=== PATIENT | male | born 1935 | race African-American/Black ===

== ENCOUNTER 2019-01-19 18:40 | Inpatient (IN) | payer MEDICARE ==
--- NOTE | 2019-01-19 19:24 | ED Physician Chart ---
ED Chief Complaint/HPI - Patient Information Date Seen:: 01/19/19 Time Seen:: 19:24 Chief Complaint:: Generalized weakness History of Present Illness:: 83 yo male was brought from home to ER for evaluation of generalized weakness, poor oral intake, failure to thrive and frequent falls. Pt lived at home and his "is in hospital" per pt. Pt was oriented to self only. Allergies:: Allergies Allergy/AdvReac Type Severity Reaction Status Date / Time Penicillins [PCN] Allergy Verified 01/19/19 19:20 Vitals:: Vital Signs - 8 hr 01/19/19 19:13 Temp 98.1 F HR 72 RR 16 BP 139/88 O2 Sat % 99 ED Review of Systems - Review of Systems General/Constitutional: No fever Skin: No rash Head: No headache Eyes: No pain ENT: No nasal drainage Neck: No neck pain Cardio Vascular: No chest pain Pulmonary: No SOB GI: No nausea, No vomiting Musculoskeletal: No back pain Neurological: Weakness, Confusion ED Past Medical History - Past Medical History Past Medical History: HTN, Thyroid disorder (hypothyroidism), Cataract, Other ( glaucoma) Social History: Non Smoker, No Alcohol, No Drug Use Surgical History: other (right eye cataract surgery) Family Medical History - Family Member Mother History Unknown: Yes ED Physical Exam - Physical Examination General/Constitutional: Awake, Alert Head: Atraumatic Eyes: PERRL, EOMI Skin: No skin lesions Other ENMT comments:: No tooth Neck: No nuchal rigidity Respiratory: No Wheeze/Rhonchi/Rales Cardio Vascular: RRR, No murmur, gallop, rubs, NL S1 S2 GI: No tenderness/rebounding/guarding Extremities: normal strength in all extremities Other Neuro/Psych comments:: Oriented to self ED Labs/Radiology/EKG Results - Lab Results Results: Laboratory Last Values WBC 4.8 Th/cmm (4.8-10.8) 01/20/19 04:30 RBC 3.69 Mil/cmm (3.80-5.80) L 01/20/19 04:30 Hgb 12.9 gm/dL (12-16) 01/20/19 04:30 Hct 39.5 % (41.0-60) L 01/20/19 04:30 MCV 107.3 fl (80-99) H 01/20/19 04:30 MCH 35.0 pg (27.0-31.0) H 01/20/19 04:30 MCHC Differential 32.7 pg (28.0-36.0) 01/20/19 04:30 RDW 13.3 % (11.5-20.0) 01/20/19 04:30 Plt Count 199 Th/cmm (150-400) 01/20/19 04:30 MPV 6.8 fl 01/20/19 04:30 Neutrophils % 52.0 % (40.0-80.0) 01/20/19 04:30 Lymphocytes % 33.0 % (20.0-50.0) 01/20/19 04:30 Monocytes % 10.4 % (2.0-10.0) H 01/20/19 04:30 Eosinophils % 4.0 % (0.0-5.0) 01/20/19 04:30 Basophils % 0.6 % (0.0-2.0) 01/20/19 04:30 PT 10.8 SECONDS (9.5-11.5) 01/19/19 19:30 INR 1.04 (0.5-1.4) 01/19/19 19:30 PTT (Actin FS) 24.5 SECONDS (26.0-38.0) L 01/19/19 19:30 Sodium 142 mEq/L (136-145) 01/20/19 04:30 Potassium 4.2 mEq/L (3.5-5.1) 01/20/19 04:30 Chloride 105 mEq/L (98-107) 01/20/19 04:30 Carbon Dioxide 27.8 mEq/L (21.0-31.0) 01/20/19 04:30 Anion Gap 13.4 (7.0-16.0) 01/20/19 04:30 BUN 23 mg/dL (7-25) 01/20/19 04:30 Creatinine 1.4 mg/dL (0.7-1.3) H 01/20/19 04:30 Est GFR ( Amer) TNP 01/20/19 04:30 Est GFR (Non-Af Amer) TNP 01/20/19 04:30 BUN/Creatinine Ratio 16.4 01/20/19 04:30 Glucose 78 mg/dL (70-105) 01/20/19 04:30 Whole Bld Lactic Acid 0.74 mmol/L (0.60-1.99) 01/19/19 19:30 Calcium 9.3 mg/dL (8.6-10.3) 01/20/19 04:30 Total Bilirubin 0.4 mg/dL (0.3-1.0) 01/20/19 04:30 AST 18 U/L (13-39) 01/20/19 04:30 ALT 13 U/L (7-52) 01/20/19 04:30 Alkaline Phosphatase 53 U/L (34-104) 01/20/19 04:30 Troponin I 0.01 ng/mL (0.01-0.05) 01/19/19 19:30 B-Natriuretic Peptide 24.5 pg/mL (5.0-100.0) 01/19/19 19:30 Total Protein 6.9 gm/dL (6.0-8.3) 01/20/19 04:30 Albumin 4.1 gm/dL (4.2-5.5) L 01/20/19 04:30 Globulin 2.8 gm/dL 01/20/19 04:30 Albumin/Globulin Ratio 1.5 (1.0-1.8) 01/20/19 04:30 TSH 2.24 uIU/ml (0.34-5.60) 01/19/19 19:30 Urine Source MIDSTREAM 01/19/19 20:27 Urine Color YELLOW 01/19/19 20:27 Urine Clarity CLEAR (CLEAR) 01/19/19 20: Urine pH 6.5 (4.6 - 8.0) 01/19/19 20:27 Ur Specific [place] 1.010 (1.005-1.030) 01/19/19 20:27 Urine Protein NEGATIVE mg/dL (NEGATIVE) 01/19/19 20: Urine Glucose (UA) NEGATIVE mg/dL (NEGATIVE) 01/19/19 20: Urine Ketones NEGATIVE mg/dL (NEGATIVE) 01/19/19 20: Urine Blood NEGATIVE (NEGATIVE) 01/19/19 20: Urine Nitrate NEGATIVE (NEGATIVE) 01/19/19 20: Urine Bilirubin NEGATIVE (NEGATIVE) 01/19/19 20: Urine Urobilinogen 0.2 E.U./dL (0.2 - 1.0) 01/19/19 20:27 Ur Leukocyte Esterase NEGATIVE (NEGATIVE) 01/19/19 20:27 - Radiology Results Results: CXR: no focal consolidation - EKG Interpretations EKG Time:: 20:03 Rate & Rhythm: 63 bpm, SR Melber: left axis deviation Intervals: PA 155 Comments:: Non-specific ST, T wave changes ED Assessment - Assessment General Assessment: Leukopenia Dehydration Failure to thrive Assessment/Comments:: CBC, CMP, Trop, BNP, UA CXR, EKG NS 1L IV bolus ED Septic Shock - . Is Septic Shock (SBP<90, OR Lactate>4 mmol\\L) present?: No - <6hrs of presentation: Vital Signs: Vital Signs - 8 hr 01/19/19 19:13 Temp 98.1 F HR 72 RR 16 BP 139/88 O2 Sat % 99 ED Reassessment (Disposition) - Reassessment Reassessment:: Pt is unsafe to live alone without proper support. Reassessment Condition:: Improved - Patient Disposition Discharge/Transfer:: Acute Care w/in this hosp Admitting Medical Physician:: Feliciano Belle
[2019-01-19 19:40] LABS: EOSINOPHILE ABSOLUTE 0.2 Th/cmm (0.1-0.4); HEMATOCRIT 39.3 % (41.0-60); MONOCYTE ABSOLUTE 0.4 Th/cmm (0.3-1.0)
[2019-01-19 19:49] LABS: % BASOPHILS 0.5 % (0.0-2.0); % EOSINOPHILS 4.4 % (0.0-5.0); % LYMPHOCYTES 38.5 % (20.0-50.0); % MONOCYTES 10.8 % (2.0-10.0); % NEUTROPHILS 45.8 % (40.0-80.0); HEMOGLOBIN 12.9 gm/dL (12-16); LYMPHOCYTE ABSOLUTE 1.5 Th/cmm (1.5-3.0); MEAN CORPUSCULAR HEMOGLOBIN 35.3 pg (27.0-31.0); MEAN CORPUSCULAR HGB CONC 32.7 pg (28.0-36.0); MEAN PLATELET VOLUME 6.6 fl; NEUTROPHILE ABSOLUTE 1.7 Th/cmm (1.8-8.0); PLATELET COUNT 219 Th/cmm (150-400); RED BLOOD COUNT 3.65 Mil/cmm (3.80-5.80); RED CELL DISTRIBUTION WIDTH 13.4 % (11.5-20.0)
[2019-01-19 19:53] LABS: ALB/GLOB RATIO 1.5 (1.0-1.8); ALBUMIN 4.3 gm/dL (4.2-5.5); ALKALINE PHOSPHATASE 58 U/L (34-104); ANION GAP 11.7 (7.0-16.0); BILIRUBIN,TOTAL 0.5 mg/dL (0.3-1.0); BUN - UREA NITROGEN 27 mg/dL (7-25); CALCIUM SERUM 9.4 mg/dL (8.6-10.3); CHLORIDE 101 mEq/L (98-107); CREATININE - SERUM 1.6 mg/dL (0.7-1.3); GLUCOSE 95 mg/dL (70-105); POTASSIUM SERUM 4.7 mEq/L (3.5-5.1); SGOT 17 U/L (13-39); SGPT/ALT 14 U/L (7-52); SODIUM SERUM 136 mEq/L (136-145); TOTAL PROTEIN,SERUM 7.2 gm/dL (6.0-8.3); WHITE BLOOD COUNT 3.8 Th/cmm (4.8-10.8)
[2019-01-19 19:57] LABS: INR 1.04 (0.5-1.4); PROTHROMBIN TIME (TEST) 10.8 SECONDS (9.5-11.5)
[2019-01-19] MEDS ORDERED: Sodium Chloride 0.9% 1,000 ML IV ONE (20:21)
[2019-01-19 20:44] LABS: MEAN CELL VOLUME 107.7 fl (80-99)
[2019-01-19 21:29] LABS: URINE SOURCE MIDSTREAM
[2019-01-19 21:31] LABS: URINE BILIRUBIN NEGATIVE (NEGATIVE); URINE BLOOD NEGATIVE (NEGATIVE); URINE GLUCOSE (UA) NEGATIVE (NEGATIVE); URINE KETONE NEGATIVE (NEGATIVE); URINE LEUKOCYTE ESTERASE NEGATIVE (NEGATIVE); URINE NITRATE NEGATIVE (NEGATIVE); URINE PH 6.5 (4.6 - 8.0); URINE PROTEIN NEGATIVE (NEGATIVE); URINE UROBILINOGEN 0.2 E.U./dL (0.2 - 1.0)
[2019-01-19 21:33] LABS: URINE COLOR YELLOW
[2019-01-19 21:34] LABS: URINE CLARITY CLEAR (CLEAR); URINE MICROSCOPIC INDICATED? NO
[2019-01-19 23:52] VITALS: BP 143/87
[2019-01-20] MEDS: Sodium Chloride 0.45% 1,000 ML IV SCH ×2 (00:22→17:59)
[2019-01-20] MEDS: cefTRIAXone 1 GM in Sodium Chloride 0.9% 50 ML IV SCH (00:22)
[2019-01-20 05:28] LABS: % BASOPHILS 0.6 % (0.0-2.0); % MONOCYTES 10.4 % (2.0-10.0); EOSINOPHILE ABSOLUTE 0.2 Th/cmm (0.1-0.4); HEMATOCRIT 39.5 % (41.0-60); HEMOGLOBIN 12.9 gm/dL (12-16); LYMPHOCYTE ABSOLUTE 1.6 Th/cmm (1.5-3.0); MEAN CORPUSCULAR HGB CONC 32.7 pg (28.0-36.0); MEAN PLATELET VOLUME 6.8 fl; MONOCYTE ABSOLUTE 0.5 Th/cmm (0.3-1.0); NEUTROPHILE ABSOLUTE 2.5 Th/cmm (1.8-8.0); PLATELET COUNT 199 Th/cmm (150-400); RED BLOOD COUNT 3.69 Mil/cmm (3.80-5.80); RED CELL DISTRIBUTION WIDTH 13.3 % (11.5-20.0); WHITE BLOOD COUNT 4.8 Th/cmm (4.8-10.8)
[2019-01-20 05:35] LABS: MEAN CELL VOLUME 107.3 fl (80-99)
[2019-01-20 05:38] LABS: ALB/GLOB RATIO 1.5 (1.0-1.8); ALBUMIN 4.1 gm/dL (4.2-5.5); ALKALINE PHOSPHATASE 53 U/L (34-104); ANION GAP 13.4 (7.0-16.0); BILIRUBIN,TOTAL 0.4 mg/dL (0.3-1.0); BUN - UREA NITROGEN 23 mg/dL (7-25); CALCIUM SERUM 9.3 mg/dL (8.6-10.3); CARBON DIOXIDE 27.8 mEq/L (21.0-31.0); CHLORIDE 105 mEq/L (98-107); CREATININE - SERUM 1.4 mg/dL (0.7-1.3); GLUCOSE 78 mg/dL (70-105); POTASSIUM SERUM 4.2 mEq/L (3.5-5.1); SGOT 18 U/L (13-39); SGPT/ALT 13 U/L (7-52); SODIUM SERUM 142 mEq/L (136-145); TOTAL PROTEIN,SERUM 6.9 gm/dL (6.0-8.3)
--- NOTE | 2019-01-20 09:45 | Diagnostic Imaging Report ---
Chest x-ray single view History: Shortness of breath The heart size is normal. No focal pulmonary parenchymal processes. No hilar or mediastinal abnormalities. Impression: No acute abnormalities
--- NOTE | 2019-01-20 16:08 | History and Physical ---
History of Present Illness - HPI Chief Complaint: Patient was admitted to [facility] due to Generalized Weakness, Poor oral intake, Failure to thrive and Frequent Falls. HPI: Edgar Belle MD History and Physical Exam Dwight You : 1935 Admit date: 01/19/2019. Date: 01/20/2019. Chief complaint Patient was admitted to [facility] due to Generalized Weakness, Poor oral intake, Failure to thrive and Frequent Falls. Present illness 83 y/o male patient was recently admitted to [facility] due to Generalized Weakness. Patient has history of Hypertension, Hypothyroidism, Cataract and Glaucoma. Patient was diagnosed with Generalized Weakness, Poor Oral Intake, Failure to Thrive, Frequent Falls, Confusion, Leukopenia and Dehydration. Patient was seen by Dr. Barnett and a complete workup was done. Patient was treated and monitored. Patient was stabilized and I will continue to treat and follow patient closely. Review of systems Vitals: Reviewed. General: Normotensive, in no acute distress. Head: Normocephalic, no lesions. Eyes: PERRLA, EOM'S full, conjunctive clear, fundi grossly normal. Neck: Supple, no masses, no thyromegaly, no bruits. Lungs: Bilateral breath sounds, No Rhonchi or wheezing noted. Heart: RR, no murmurs, no rubs, no gallops. Abdomen: Soft, no tenderness, no masses, BS normal. Musculoskeletal: General Weakness. Psych: Patient is Mildly Confused. Skin: No rash or skin lesions noted. Neurological: Denies headache and loss of consciousness. Past medical history Hypertension, Hypothyroidism, Cataract and Glaucoma. Past surgical history Right eye cataract surgery. Medications Please refer to medication reconciliation sheet. Allergies Allergic to Penicillin. Family history Noncontributory. Social history Nonsmoker, No Alcohol use, No drug abuse. Physical Exam- HEENT: Head is normocephalic, atraumatic. NECK: Supple. No JVD. No carotid bruit. CHEST: Bilateral breath sounds. No crackles. No wheezing. HEART: S1, S2 within normal limits. Regular rhythm. No murmur. No gallop. ABDOMEN: soft, non-tender, non-distended. Bowel sounds present. EXTREMITIES: General Weakness. NEUROLOGIC: Altered Mental Status. Assessment and Impression Generalized Weakness. Poor Oral Intake. Failure to Thrive. Frequent Falls. Confusion. Leukopenia. Dehydration. Plan Continuation of care. Monitor Labs. Continue present meds as directed. Monitor vitals, continue B/P meds. Monitor Diet/Nutritional support. Monitor mental status progression. Monitor behavioral health status. Physical therapy. Occupational therapy. Fall precaution, frequent nursing rounds, and as needed restraints to prevent fall. Safety precaution. Supportive care. Continue collaborating with consulting specialists, case management and nursing team. Will Monitor patient and continue current treatment plan as ordered. Vital Signs: Last Vital Signs Temp 97.9 F 01/20/19 15:32 Pulse 65 01/20/19 15:32 Resp 18 01/20/19 15:32 BP 124/75 01/20/19 15:32 Pulse Ox 93 01/20/19 15:32 Past Medical History Cardiovascular: Report: No Pertinent Hx Pulmonary: Report: No Pertinent Hx PEARL PELLER: Report: No Pertinent Hx GI: Report: No Pertinent Hx Psych: Report: No Pertinent Hx Musculoskeletal: Report: Other (Generalized weakness.) Rheumatologic: Report: No pertinent Hx Infectious Disease: Report: No Pertinent Hx Renal/: Report: No Pertinent Hx Endocrine: Report: Hypothyroidism Dermatology: Report: No Pertinent Hx - Past Surgical History Past Surgical History: Cataract Removal Family Medical History - Family Member Mother History Unknown: Yes Social History Smoke: No Alcohol: None Drugs: None Lives: Alone Domestic Violence: Negative Health Maintenance Health Maintenance: Other (Noncontributory) - Medications Home Medications: Home Medication Medication Instructions Recorded Type Acetaminophen 2 tab PO Q4HR PRN 01/19/19 History Acetaminophen 2 tab PO Q4HR PRN 01/19/19 History Hydrocodone/Acetaminophen [[place] 1 tab PO Q6HR PRN 01/19/19 History 10-325 Tablet] Levothyroxine [Synthroid] 1 tab PO DAILY 01/19/19 History Timolol 0.5% Ophth Soln [Timoptic 1 drop EACH EYE BID 01/19/19 History 0.5% Ophth Soln] - Allergies Allergies/Adverse Reactions: Allergies Allergy/AdvReac Type Severity Reaction Status Date / Time Penicillins [PCN] Allergy Verified 01/19/19 19:20 Review of Systems - Review of Systems Constitutional: Report: Weakness Eyes: Report: Other (Cataract) ENT: Report: No Significant Respiratory: Report: No Significant Cardiovascular: Report: No Significant Gastrointestinal: Report: No Significant Genitourinary: Report: No Significant Musculoskeletal: Report: No Significant Skin: Report: No Significant Neurological: Report: Weakness, Confusion, Other (Failure to thrive) Physical Exam - Physical Exam HEENT: Report: Ears Nose Throat within normal limits Neck: Report: Within normal limits Cardiovascular Systems: Report: +s1/s2 noted Respiratory: Report: Breath Sounds are within normal limits Abdomen: Report: Non-tender to palpation Back: Report: Inspection of back is within normal limits. Extremities: Report: Non-tender to palpation. Skin: Report: Color of skin is within normal limits Neuro/Psych: Report: Weakness or sensory loss noted., Other (Confusion.) - Lab Results All Lab Results last 24 hours: Laboratory Results - last 24 hr 01/19/19 01/19/19 01/19/19 19:30 19:30 19:30 WBC 3.8 L RBC 3.65 L Hgb 12.9 Hct 39.3 L MCV 107.7 H MCH 35.3 H MCHC Differential 32.7 RDW 13.4 Plt Count 219 MPV 6.6 Neutrophils % 45.8 Lymphocytes % 38.5 Monocytes % 10.8 H Eosinophils % 4.4 Basophils % 0.5 PT 10.8 INR 1.04 PTT (Actin FS) 24.5 L Sodium 136 Potassium 4.7 Chloride 101 Carbon Dioxide 28.0 Anion Gap 11.7 BUN 27 H Creatinine 1.6 H Est GFR ( Amer) TNP Est GFR (Non-Af Amer) TNP BUN/Creatinine Ratio 16.9 Glucose 95 Whole Bld Lactic Acid Calcium 9.4 Total Bilirubin 0.5 AST 17 ALT 14 Alkaline Phosphatase 58 Troponin I B-Natriuretic Peptide Total Protein 7.2 Albumin 4.3 Globulin 2.9 Albumin/Globulin Ratio 1.5 TSH Urine Source Urine Color Urine Clarity Urine pH Ur Specific [place] Urine Protein Urine Glucose (UA) Urine Ketones Urine Blood Urine Nitrate Urine Bilirubin Urine Urobilinogen Ur Leukocyte Esterase 01/19/19 01/19/19 01/19/19 19:30 19:30 19:30 WBC RBC Hgb Hct MCV MCH MCHC Differential RDW Plt Count MPV Neutrophils % Lymphocytes % Monocytes % Eosinophils % Basophils % PT INR PTT (Actin FS) Sodium Potassium Chloride Carbon Dioxide Anion Gap BUN Creatinine Est GFR ( Amer) Est GFR (Non-Af Amer) BUN/Creatinine Ratio Glucose Whole Bld Lactic Acid Calcium Total Bilirubin AST ALT Alkaline Phosphatase Troponin I 0.01 B-Natriuretic Peptide 24.5 Total Protein Albumin Globulin Albumin/Globulin Ratio TSH 2.24 Urine Source Urine Color Urine Clarity Urine pH Ur Specific [place] Urine Protein Urine Glucose (UA) Urine Ketones Urine Blood Urine Nitrate Urine Bilirubin Urine Urobilinogen Ur Leukocyte Esterase 01/19/19 01/19/19 01/20/19 19:30 20:27 04:30 WBC RBC Hgb Hct MCV MCH MCHC Differential RDW Plt Count MPV Neutrophils % Lymphocytes % Monocytes % Eosinophils % Basophils % PT INR PTT (Actin FS) Sodium 142 Potassium 4.2 Chloride 105 Carbon Dioxide 27.8 Anion Gap 13.4 BUN 23 Creatinine 1.4 H Est GFR ( Amer) TNP Est GFR (Non-Af Amer) TNP BUN/Creatinine Ratio 16.4 Glucose 78 Whole Bld Lactic Acid 0.74 Calcium 9.3 Total Bilirubin 0.4 AST 18 ALT 13 Alkaline Phosphatase 53 Troponin I B-Natriuretic Peptide Total Protein 6.9 Albumin 4.1 L Globulin 2.8 Albumin/Globulin Ratio 1.5 TSH Urine Source MIDSTREAM Urine Color YELLOW Urine Clarity CLEAR Urine pH 6.5 Ur Specific [place] 1.010 Urine Protein NEGATIVE Urine Glucose (UA) NEGATIVE Urine Ketones NEGATIVE Urine Blood NEGATIVE Urine Nitrate NEGATIVE Urine Bilirubin NEGATIVE Urine Urobilinogen 0.2 Ur Leukocyte Esterase NEGATIVE 01/20/19 04:30 WBC 4.8 RBC 3.69 L Hgb 12.9 Hct 39.5 L MCV 107.3 H MCH 35.0 H MCHC Differential 32.7 RDW 13.3 Plt Count 199 MPV 6.8 Neutrophils % 52.0 Lymphocytes % 33.0 Monocytes % 10.4 H Eosinophils % 4.0 Basophils % 0.6 PT INR PTT (Actin FS) Sodium Potassium Chloride Carbon Dioxide Anion Gap BUN Creatinine Est GFR ( Amer) Est GFR (Non-Af Amer) BUN/Creatinine Ratio Glucose Whole Bld Lactic Acid Calcium Total Bilirubin AST ALT Alkaline Phosphatase Troponin I B-Natriuretic Peptide Total Protein Albumin Globulin Albumin/Globulin Ratio TSH Urine Source Urine Color Urine Clarity Urine pH Ur Specific [place] Urine Protein Urine Glucose (UA) Urine Ketones Urine Blood Urine Nitrate Urine Bilirubin Urine Urobilinogen Ur Leukocyte Esterase - Assessment Assessment: Generalized Weakness. Poor Oral Intake. Failure to Thrive. Frequent Falls. Confusion. Leukopenia. Dehydration. - Plan Plan: Plan Continuation of care. Monitor Labs. Continue present meds as directed. Monitor vitals, continue B/P meds. Monitor Diet/Nutritional support. Monitor mental status progression. Monitor behavioral health status. Physical therapy. Occupational therapy. Fall precaution, frequent nursing rounds, and as needed restraints to prevent fall. Safety precaution. Supportive care. Continue collaborating with consulting specialists, case management and nursing team. Will Monitor patient and continue current treatment plan as ordered.
[2019-01-21] MEDS: Hydrocodone/APAP 10 mg/325 mg Tab PO PRN ×2 (00:12→20:47)
--- NOTE | 2019-01-21 02:56 | Consultation ---
DATE OF CONSULTATION: 01/20/2019 REQUESTING PHYSICIAN: Dr. Belle. REASON FOR CONSULTATION: Failure to thrive. Thank you for asking me to see this patient in consultation. HISTORY OF PRESENT ILLNESS: This is an 83-year-old male who has been admitted to [facility] for generalized weakness, poor oral intake and failure to thrive. The patient is continuing to perseverate on his , knowing his medical history, however, appears relatively confused and is unable to tell us exactly where he is today. He has a history of high blood pressure and is currently being managed for toxic metabolic encephalopathy, as well as dehydration. Per nursing report, he has been able to eat without any major issues, unclear whether a calorie count has been initiated or not. PAST MEDICAL HISTORY: Hypertension, hypothyroidism, cataract and glaucoma. Unknown if he has dementia. MEDICATIONS: Have been reviewed. ALLERGIES: PENICILLIN. FAMILY HISTORY: Noncontributory for GI disease. SOCIAL HISTORY: Denies any tobacco, alcohol or drugs. REVIEW OF SYSTEMS: Unobtainable given the patient's current state. PHYSICAL EXAMINATION: VITAL SIGNS: Temperature 97.9, pulse of 65, respiratory rate of 18, blood pressure is 124/75, satting 93% on room air. GENERAL: He is in no acute distress. HEENT: Normocephalic, atraumatic. PERRLA positive. LUNGS: Clear bilaterally. No wheeze, rales or rhonchi. HEART: Regular rate and rhythm; normal S1, S2. ABDOMEN: Soft, nontender, bowel sounds are positive. EXTREMITIES: Show no lower extremity edema. LABORATORY DATA: White count of 4.8; hemoglobin 12.9; platelet count 199,000. ASSESSMENT AND PLAN: This is an 83-year-old male with history of hypertension, who presents with failure to thrive, poor oral intake and toxic metabolic encephalopathy. 1. Acute delirium versus dementia. 2. Poor oral intake. 3. Concern for dysphagia. 4. Protein-calorie malnutrition. 5. Failure to thrive. PLAN: Would recommend obtaining a calorie count and monitor the patient's eating and potential deficiencies. The patient may be a candidate for EGD with PEG tube placement if he is not meeting his necessary goals as the patient and/or family wishes to pursue this option. We will continue to follow alongside with you. Thank you for allowing me to participate in this patient's care. JOB# [id number]
[2019-01-21 06:41] LABS: HEMATOCRIT 40.7 % (41.0-60); MEAN CORPUSCULAR HEMOGLOBIN 34.7 pg (27.0-31.0); MEAN CORPUSCULAR HGB CONC 32.1 pg (28.0-36.0); MEAN PLATELET VOLUME 7.1 fl; PLATELET COUNT 202 Th/cmm (150-400); RED BLOOD COUNT 3.76 Mil/cmm (3.80-5.80); RED CELL DISTRIBUTION WIDTH 13.1 % (11.5-20.0); WHITE BLOOD COUNT 5.3 Th/cmm (4.8-10.8)
[2019-01-21 07:02] LABS: MEAN CELL VOLUME 108.1 fl (80-99)
[2019-01-21] MEDS: Levothyroxine 0.1 Mg Tab PO SCH (08:11)
[2019-01-21 08:16] LABS: EOSINOPHIL 3 % (0-5); LYMPHOCYTE 26 % (20-50); MONOCYTE 6 % (2-10); NEUTROPHILS 65 % (40-80); PLATELET ESTIMATE ADEQUATE (NORMAL)
[2019-01-21 08:35] LABS: ANION GAP 13.1 (7.0-16.0); BUN - UREA NITROGEN 25 mg/dL (7-25); CALCIUM SERUM 9.6 mg/dL (8.6-10.3); CARBON DIOXIDE 27.1 mEq/L (21.0-31.0); CHLORIDE 102 mEq/L (98-107); CREATININE - SERUM 1.4 mg/dL (0.7-1.3); GLUCOSE 95 mg/dL (70-105); POTASSIUM SERUM 4.2 mEq/L (3.5-5.1); SODIUM SERUM 138 mEq/L (136-145)
[2019-01-21] MEDS: Sodium Chloride 0.45% 1,000 ML IV SCH (16:09)
--- NOTE | 2019-01-21 17:44 | GI Progress Note ---
Subjective - Review of Systems Service Date: 01/21/19 Events since last encounter: No new events Objective - Results Result Diagrams: 01/21/19 04:44 01/21/19 04:44 Recent Labs: Laboratory Last Values WBC 5.3 Th/cmm (4.8-10.8) 01/21/19 04:44 RBC 3.76 Mil/cmm (3.80-5.80) L 01/21/19 04:44 Hgb 13.0 gm/dL (12-16) 01/21/19 04:44 Hct 40.7 % (41.0-60) L 01/21/19 04:44 MCV 108.1 fl (80-99) H 01/21/19 04:44 MCH 34.7 pg (27.0-31.0) H 01/21/19 04:44 MCHC Differential 32.1 pg (28.0-36.0) 01/21/19 04:44 RDW 13.1 % (11.5-20.0) 01/21/19 04:44 Plt Count 202 Th/cmm (150-400) 01/21/19 04:44 MPV 7.1 fl 01/21/19 04:44 Add Manual Diff YES 01/21/19 04:44 Neutrophils % 52.0 % (40.0-80.0) 01/20/19 04:30 Lymphocytes % 33.0 % (20.0-50.0) 01/20/19 04:30 Monocytes % 10.4 % (2.0-10.0) H 01/20/19 04:30 Eosinophils % 4.0 % (0.0-5.0) 01/20/19 04:30 Basophils % 0.6 % (0.0-2.0) 01/20/19 04:30 Neutrophils (Manual) 65 % (40-80) 01/21/19 04:44 Lymphocytes 26 % (20-50) 01/21/19 04:44 Monocytes 6 % (2-10) 01/21/19 04:44 Eosinophils 3 % (0-5) 01/21/19 04:44 Platelet Estimate ADEQUATE (NORMAL) 01/21/19 04:44 Macrocytosis 2+ 01/21/19 04:44 PT 10.8 SECONDS (9.5-11.5) 01/19/19 19:30 INR 1.04 (0.5-1.4) 01/19/19 19:30 PTT (Actin FS) 24.5 SECONDS (26.0-38.0) L 01/19/19 19:30 Sodium 138 mEq/L (136-145) 01/21/19 04:44 Potassium 4.2 mEq/L (3.5-5.1) 01/21/19 04:44 Chloride 102 mEq/L (98-107) 01/21/19 04:44 Carbon Dioxide 27.1 mEq/L (21.0-31.0) 01/21/19 04:44 Anion Gap 13.1 (7.0-16.0) 01/21/19 04:44 BUN 25 mg/dL (7-25) 01/21/19 04:44 Creatinine 1.4 mg/dL (0.7-1.3) H 01/21/19 04:44 Est GFR ( Amer) TNP 01/21/19 04:44 Est GFR (Non-Af Amer) TNP 01/21/19 04:44 BUN/Creatinine Ratio 17.9 01/21/19 04:44 Glucose 95 mg/dL (70-105) 01/21/19 04:44 Whole Bld Lactic Acid 0.74 mmol/L (0.60-1.99) 01/19/19 19:30 Calcium 9.6 mg/dL (8.6-10.3) 01/21/19 04:44 Total Bilirubin 0.4 mg/dL (0.3-1.0) 01/20/19 04:30 AST 18 U/L (13-39) 01/20/19 04:30 ALT 13 U/L (7-52) 01/20/19 04:30 Alkaline Phosphatase 53 U/L (34-104) 01/20/19 04:30 Troponin I 0.01 ng/mL (0.01-0.05) 01/19/19 19:30 B-Natriuretic Peptide 24.5 pg/mL (5.0-100.0) 01/19/19 19:30 Total Protein 6.9 gm/dL (6.0-8.3) 01/20/19 04:30 Albumin 4.1 gm/dL (4.2-5.5) L 01/20/19 04:30 Globulin 2.8 gm/dL 01/20/19 04:30 Albumin/Globulin Ratio 1.5 (1.0-1.8) 01/20/19 04:30 TSH 2.24 uIU/ml (0.34-5.60) 01/19/19 19:30 Urine Source MIDSTREAM 01/19/19 20:27 Urine Color YELLOW 01/19/19 20:27 Urine Clarity CLEAR (CLEAR) 01/19/19 20: Urine pH 6.5 (4.6 - 8.0) 01/19/19 20:27 Ur Specific [place] 1.010 (1.005-1.030) 01/19/19 20:27 Urine Protein NEGATIVE mg/dL (NEGATIVE) 01/19/19 20: Urine Glucose (UA) NEGATIVE mg/dL (NEGATIVE) 01/19/19 20: Urine Ketones NEGATIVE mg/dL (NEGATIVE) 01/19/19 20:27 Urine Blood NEGATIVE (NEGATIVE) 01/19/19 20: Urine Nitrate NEGATIVE (NEGATIVE) 01/19/19 20:27 Urine Bilirubin NEGATIVE (NEGATIVE) 01/19/19 20:27 Urine Urobilinogen 0.2 E.U./dL (0.2 - 1.0) 01/19/19 20:27 Ur Leukocyte Esterase NEGATIVE (NEGATIVE) 01/19/19 20: - Physical Exam Vitals and I&O: Vital Signs Temp 98.0 F 01/21/19 16:00 Pulse 68 01/21/19 16:00 Resp 18 01/21/19 16:00 BP 96/64 01/21/19 16:00 Pulse Ox 97 01/21/19 16:00 Intake & Output 01/20/19 01/21/19 01/21/19 18:59 06:59 18:59 Intake Total 6503 826 1605 Balance 0025 237 6874 Weight (lbs) 61.235 kg Intake: Intake, IV Amount 1000 1000 Sodium Chloride 0.45% 1, 1000 1000 000 ml @ 75 mls/hr IV . [id number] [facility] Rx#:[id number] Oral 100 Other: # Voids 5 # Bowel Movements 0 Weight Source Bedscale Active Medications: Current Medications Acetaminophen (Tylenol) 650 mg PO Q4HR PRN PRN Reason: Mild Pain/Fever >101 Stop: 03/21/19 16:39 Last Admin: 01/21/19 16:09 Dose: 650 mg Acetaminophen/Hydrocodone Bitart ([place] 10 Mg/325 Mg) 1 tab PO Q6HR PRN PRN Reason: Pain (Severe) Stop: 03/21/19 16:39 Last Admin: 01/21/19 00:12 Dose: 1 tab Ceftriaxone Sodium 1 gm/ (Sodium Chloride) 50 mls @ 100 mls/hr IV Q24HR YANN Stop: 03/21/19 00:00 Last Admin: 01/21/19 00:00 Dose: 100 mls/hr Sodium Chloride (Nacl 0.45%) 1,000 mls @ 75 mls/hr IV .[id number] [facility] Stop: 03/20/19 23:50 Last Admin: 01/21/19 16:09 Dose: 75 mls/hr Levothyroxine Sodium (Synthroid) 0.1 mg PO QDAC YANN Stop: 03/22/19 07:29 Last Admin: 01/21/19 08:11 Dose: 0.1 mg Lorazepam (Ativan) 1 mg IVP Q4HR PRN; Protocol PRN Reason: Anxiety Stop: 03/22/19 03:41 Last Admin: 01/21/19 04:03 Dose: 1 mg Timolol Maleate (Timoptic 0.5% [facility] Sol) 1 drop EACH EYE BID [facility] Stop: 03/21/19 16:59 Last Admin: 01/21/19 16:06 Dose: 1 drop Assessment/Plan - Assessment Assessment: 1. Weakness 2. Poor PO intake 3. Concern for dysphagia -obtain 48 hr calorie count -may require PEG tube placement -will continue to follow
--- NOTE | 2019-01-21 19:22 | Internal Medicine Prog Note ---
Internal Medicine Subjective - Subjective Service Date: 01/21/19 Patient seen and examined:: with staff Patient is:: awake, verbal Per staff patient has:: tolerating meds Internal Medicine Objective - Results Result Diagrams: 01/21/19 04:44 01/21/19 04:44 Recent Labs: Laboratory Last Values WBC 5.3 Th/cmm (4.8-10.8) 01/21/19 04:44 RBC 3.76 Mil/cmm (3.80-5.80) L 01/21/19 04:44 Hgb 13.0 gm/dL (12-16) 01/21/19 04:44 Hct 40.7 % (41.0-60) L 01/21/19 04:44 MCV 108.1 fl (80-99) H 01/21/19 04:44 MCH 34.7 pg (27.0-31.0) H 01/21/19 04:44 MCHC Differential 32.1 pg (28.0-36.0) 01/21/19 04:44 RDW 13.1 % (11.5-20.0) 01/21/19 04:44 Plt Count 202 Th/cmm (150-400) 01/21/19 04:44 MPV 7.1 fl 01/21/19 04:44 Add Manual Diff YES 01/21/19 04:44 Neutrophils % 52.0 % (40.0-80.0) 01/20/19 04:30 Lymphocytes % 33.0 % (20.0-50.0) 01/20/19 04:30 Monocytes % 10.4 % (2.0-10.0) H 01/20/19 04:30 Eosinophils % 4.0 % (0.0-5.0) 01/20/19 04:30 Basophils % 0.6 % (0.0-2.0) 01/20/19 04:30 Neutrophils (Manual) 65 % (40-80) 01/21/19 04:44 Lymphocytes 26 % (20-50) 01/21/19 04:44 Monocytes 6 % (2-10) 01/21/19 04:44 Eosinophils 3 % (0-5) 01/21/19 04:44 Platelet Estimate ADEQUATE (NORMAL) 01/21/19 04:44 Macrocytosis 2+ 01/21/19 04:44 PT 10.8 SECONDS (9.5-11.5) 01/19/19 19:30 INR 1.04 (0.5-1.4) 01/19/19 19:30 PTT (Actin FS) 24.5 SECONDS (26.0-38.0) L 01/19/19 19:30 Sodium 138 mEq/L (136-145) 01/21/19 04:44 Potassium 4.2 mEq/L (3.5-5.1) 01/21/19 04:44 Chloride 102 mEq/L (98-107) 01/21/19 04:44 Carbon Dioxide 27.1 mEq/L (21.0-31.0) 01/21/19 04:44 Anion Gap 13.1 (7.0-16.0) 01/21/19 04:44 BUN 25 mg/dL (7-25) 01/21/19 04:44 Creatinine 1.4 mg/dL (0.7-1.3) H 01/21/19 04:44 Est GFR ( Amer) TNP 01/21/19 04:44 Est GFR (Non-Af Amer) TNP 01/21/19 04:44 BUN/Creatinine Ratio 17.9 01/21/19 04:44 Glucose 95 mg/dL (70-105) 01/21/19 04:44 Whole Bld Lactic Acid 0.74 mmol/L (0.60-1.99) 01/19/19 19:30 Calcium 9.6 mg/dL (8.6-10.3) 01/21/19 04:44 Total Bilirubin 0.4 mg/dL (0.3-1.0) 01/20/19 04:30 AST 18 U/L (13-39) 01/20/19 04:30 ALT 13 U/L (7-52) 01/20/19 04:30 Alkaline Phosphatase 53 U/L (34-104) 01/20/19 04:30 Troponin I 0.01 ng/mL (0.01-0.05) 01/19/19 19:30 B-Natriuretic Peptide 24.5 pg/mL (5.0-100.0) 01/19/19 19:30 Total Protein 6.9 gm/dL (6.0-8.3) 01/20/19 04:30 Albumin 4.1 gm/dL (4.2-5.5) L 01/20/19 04:30 Globulin 2.8 gm/dL 01/20/19 04:30 Albumin/Globulin Ratio 1.5 (1.0-1.8) 01/20/19 04:30 TSH 2.24 uIU/ml (0.34-5.60) 01/19/19 19:30 Urine Source MIDSTREAM 01/19/19 20:27 Urine Color YELLOW 01/19/19 20:27 Urine Clarity CLEAR (CLEAR) 01/19/19 20:27 Urine pH 6.5 (4.6 - 8.0) 01/19/19 20:27 Ur Specific [place] 1.010 (1.005-1.030) 01/19/19 20:27 Urine Protein NEGATIVE mg/dL (NEGATIVE) 01/19/19 20:27 Urine Glucose (UA) NEGATIVE mg/dL (NEGATIVE) 01/19/19 20:27 Urine Ketones NEGATIVE mg/dL (NEGATIVE) 01/19/19 20:27 Urine Blood NEGATIVE (NEGATIVE) 01/19/19 20:27 Urine Nitrate NEGATIVE (NEGATIVE) 01/19/19 20:27 Urine Bilirubin NEGATIVE (NEGATIVE) 01/19/19 20:27 Urine Urobilinogen 0.2 E.U./dL (0.2 - 1.0) 01/19/19 20:27 Ur Leukocyte Esterase NEGATIVE (NEGATIVE) 01/19/19 20:27 - Physical Exam Vitals and I&O: Vital Signs Temp 98.0 F 01/21/19 16:00 Pulse 68 01/21/19 16:00 Resp 18 01/21/19 16:00 BP 96/64 01/21/19 16:00 Pulse Ox 97 01/21/19 16:00 Intake & Output 01/21/19 01/21/19 01/22/19 06:59 18:59 06:59 Intake Total 100 2200 Balance 100 2200 Weight (lbs) 135 lb 136 lb Intake: Intake, IV Amount 1000 Sodium Chloride 0.45% 1, 1000 000 ml @ 75 mls/hr IV . [id number] YANN Rx#:[id number] Oral 100 1200 Other: # Voids 5 4 # Bowel Movements 0 0 Weight Source Bedscale Bedscale Active Medications: Current Medications Acetaminophen (Tylenol) 650 mg PO Q4HR PRN PRN Reason: Mild Pain/Fever >101 Stop: 03/21/19 16:39 Last Admin: 01/21/19 16:09 Dose: 650 mg Acetaminophen/Hydrocodone Bitart ([place] 10 Mg/325 Mg) 1 tab PO Q6HR PRN PRN Reason: Pain (Severe) Stop: 03/21/19 16:39 Last Admin: 01/21/19 00:12 Dose: 1 tab Ceftriaxone Sodium 1 gm/ (Sodium Chloride) 50 mls @ 100 mls/hr IV Q24HR YANN Stop: 03/21/19 00:00 Last Admin: 01/21/19 00:00 Dose: 100 mls/hr Sodium Chloride (Nacl 0.45%) 1,000 mls @ 75 mls/hr IV .[id number] [facility] Stop: 03/20/19 23:50 Last Admin: 01/21/19 16:09 Dose: 75 mls/hr Levothyroxine Sodium (Synthroid) 0.1 mg PO QDAC [facility] Stop: 03/22/19 07:29 Last Admin: 01/21/19 08:11 Dose: 0.1 mg Lorazepam (Ativan) 1 mg IVP Q4HR PRN; Protocol PRN Reason: Anxiety Stop: 03/22/19 03:41 Last Admin: 01/21/19 04:03 Dose: 1 mg Timolol Maleate (Timoptic 0.5% Oph Soln) 1 drop EACH EYE BID [facility] Stop: 03/21/19 16:59 Last Admin: 01/21/19 16:06 Dose: 1 drop General: weak, alert HEENT: NC/AT, PERRLA Neck: Supple Lungs: CTAB Cardiovascular: RRR, Normal S1, Normal S2, without murmur, with murmur Abdomen: soft Internal Medicine Assmt/Plan - Assessment Assessment: Generalized Weakness. Poor Oral Intake. Failure to Thrive. Frequent Falls. Confusion. Leukopenia. Dehydration. - Plan Plan: monitor oral intake am labs continue current plan of care Nutritional Asmnt/Malnutr-PDOC - Dietary Evaluation Malnutrition Findings (Please click <Entered> for more info): Nutritional Asmnt/Malnutrition Start: 01/20/19 13: 30 Text: Status: Complete Freq: Protocol: Document 01/20/19 14:10 MICHOACANO (Rec: 01/20/19 14:14 MICHOACANO [id number]) Nutritional Asmnt/Malnutrition Patient General Information Nutritional Screening High Risk Consult Diagnosis FTT Pertinent Medical Hx/Surgical Hx HTN, thyroid disorder, cataract, glaucoma Subjective Information Nutrition consult received for FTT.Pt seen sitting up in bed at time of visit, eating lunch by himself, lunch tray almost finished. Per nurse, pt consumed 60% of breakfast this morning. Pt is confused, not able to answer RD questions. Current Diet Order/ Nutrition Support [facility] soft ground Pertinent Medications Nacl 0.45% Pertinent Labs 01/20 Cr 1.4, glucseo 78 01/19 BUN 27, Cr 1.6 Nutritional Hx/Data Height 5 ft 8 in Height (Calculated Centimeters) 172.7 Current Weight (lbs) 135 lb Weight (Calculated Kilograms) 61.2 Weight (Calculated Grams) 06847.0 [place] Body Weight 154 Body Mass Index (BMI) 20.5 Weight Status Approriate GI Symptoms GI Symptoms None Last BM not indicated Difficult in: None Skin Integrity/Comment: intact Current %PO Good (75-100%) Estimated Nutritional Goals BEE in Kcals: Using Current wt Calories/Kcals/Kg 25-30 Kcals Calculated 1560-9162 Protein: Using Current wt Protein g/k-1.2 Protein Calculated 61-73 Fluid: ml 1525-1830ml (1ml/kcal) Nutritional Problem No current Nutrition Prob Problem N/A Malnutrition Alert Is there a minimum of two criteria No selected? Query Text:Check all the applicable criteria. A minimum of two criteria are recommended for diagnosis of either severe or non-severe malnutrition. Malnutrition Related to Morbid Obesity Malnutrition related to morbid obesity No Intervention/Recommendation Comments 1. Continue with [facility] soft ground diet as ordered. 2. Monitor PO intake, wt, labs and skin integrity 3. F/U as low risk in 7 days Expected Outcomes/Goals Expected Outcomes/Goals 1. PO intake to meet at least 75% of nutritional needs. 2. Wt stability, skin to remain intact, labs to approach WNL.
[2019-01-21] MEDS: cefTRIAXone 1 GM in Sodium Chloride 0.9% 50 ML IV SCH ×2 (23:55)
[2019-01-22 06:07] LABS: % EOSINOPHILS 4.3 % (0.0-5.0); % LYMPHOCYTES 25.7 % (20.0-50.0); % MONOCYTES 9.3 % (2.0-10.0); % NEUTROPHILS 59.7 % (40.0-80.0); EOSINOPHILE ABSOLUTE 0.2 Th/cmm (0.1-0.4); HEMOGLOBIN 13.5 gm/dL (12-16); LYMPHOCYTE ABSOLUTE 1.3 Th/cmm (1.5-3.0); MEAN CORPUSCULAR HEMOGLOBIN 35.6 pg (27.0-31.0); MEAN PLATELET VOLUME 6.6 fl; MONOCYTE ABSOLUTE 0.5 Th/cmm (0.3-1.0); PLATELET COUNT 192 Th/cmm (150-400); RED CELL DISTRIBUTION WIDTH 13.6 % (11.5-20.0)
[2019-01-22 06:22] LABS: ANION GAP 11.3 (7.0-16.0); BUN - UREA NITROGEN 23 mg/dL (7-25); CALCIUM SERUM 8.9 mg/dL (8.6-10.3); CARBON DIOXIDE 25.9 mEq/L (21.0-31.0); CHLORIDE 105 mEq/L (98-107); CREATININE - SERUM 1.4 mg/dL (0.7-1.3); GLUCOSE 123 mg/dL (70-105); POTASSIUM SERUM 4.2 mEq/L (3.5-5.1); SODIUM SERUM 138 mEq/L (136-145)
[2019-01-22] MEDS: Levothyroxine 0.1 Mg Tab PO SCH (06:33)
[2019-01-22] MEDS: Sodium Chloride 0.45% 1,000 ML IV SCH (07:09)
== END 2019-01-22 15:26 | DRG 91 ==
LOC: ER 18:40 → EDBD 18:40 → MSI 22:36
PROVIDERS: ADMIT Internal Medicine; ATTEND Internal Medicine
DX: G92 Toxic encephalopathy (principal); E41 Nutritional marasmus; E44.0 Moderate protein-calorie malnutrition; R53.1 Weakness; D72.819 Decreased white blood cell count, unspecified; E86.0 Dehydration; R62.7 Adult failure to thrive; I10 Essential (primary) hypertension; E03.9 Hypothyroidism, unspecified; H40.9 Unspecified glaucoma; Z68.20 Body mass index [BMI] 20.0-20.9, adult; Z91.81 History of falling; Z88.0 Allergy status to penicillin
CPT/HCPCS: 36415-UA; 71045-TC; 80048-TC; 80053-TC; 81003-TC; 83605; 83880-TC; 84443-TC; 84484-TC; 85007-TC; 85025-TC; 85610-TC; 93005; 97530; J0696; J2060; J7030; X3904; Z7610

== ENCOUNTER 2019-07-13 03:23 | Inpatient (IN) | payer MEDICARE, OTHER ==
--- NOTE | 2019-07-13 04:28 | ED Physician Chart ---
ED Chief Complaint/HPI - Patient Information Date Seen:: 07/13/19 Time Seen:: 04:00 Chief Complaint:: agitation History of Present Illness:: this is an 84 yo male sent from a the halfway for evaluation and treatment. the patient has been combative with the staff. Allergies:: Allergies Allergy/AdvReac Type Severity Reaction Status Date / Time Penicillins [PCN] Allergy Verified 01/19/19 19:20 Vitals:: Vital Signs - 8 hr 07/13/19 03:36 Temp 97.2 F HR 80 RR 18 BP 121/71 O2 Sat % 97 Historian:: Medical Records Review:: Nurse's Note Reviewed, Old Chart Reviewed, Transfer documents Reviewed ED Review of Systems - Review of Systems General/Constitutional: No fever, No chills, No weight loss, No weakness, No diaphoresis, No edema, No loss of appetite, Other (this patient is unable to give a review of system) Skin: No skin lesions, No rash, No bruising Head: No headache, No light-headedness Eyes: No loss of vision, No pain, No diplopia ENT: No earache, No nasal drainage, No sore throat, No tinnitus Neck: No neck pain, No swelling, No thyromegaly, No stiffness, No mass noted Cardio Vascular: No chest pain, No palpitations, No PND, No orthopnea, No edema Pulmonary: No SOB, No cough, No sputum, No wheezing GI: No nausea, No vomiting, No diarrhea, No pain, No melena, No hematochezia, No constipation, No hematemesis G/U: No dysuria, No frequency, No hematuria Musculoskeletal: No bone or joint pain, No back pain, No muscle pain Endocrine: No polyuria, No polydipsia Psychiatric: No prior psych history, No depression, No anxiety, No suicidal ideation Hematopoietic: No bruising, No lymphadenopathy Allergic/Immuno: No urticaria, No angioedema Neurological: No syncope, No focal symptoms, No weakness, No paresthesia, No headache, No seizure, No dizziness, No confusion, No vertigo ED Past Medical History - Past Medical History Obtainable: Yes Past Medical History: HTN, Thyroid disorder, Dementia, Cataract Family History: None Social History: Non Smoker, No Alcohol, No Drug Use, Care Facility Surgical History: other (unknown) Psychiatricy History: Dementia Medication: Reviewed Family Medical History - Family Member Mother History Unknown: Yes ED Physical Exam - Physical Examination General/Constitutional: Awake, Well-developed, well-nourished, Alert, No distress, GCS 15, Non-toxic appearing, Ambulatory Other Gen/Cons comments:: confused and disoriented Head: Atraumatic Eyes: Lids, conjuctiva normal, PERRL, EOMI Skin: Nl inspection, No rash, No skin lesions, No ecchymosis, Well hydrated, No lymphadenopathy ENMT: External ears, nose nl, Nasal exam nl, Lips, teeth, gums nl Other ENMT comments:: hard of hearing Neck: Nontender, Full ROM w/o pain, No JVD, No nuchal rigidity, No bruit, No mass, No stridor Respiratory: Nl effort/Exclusion, Clear to Auscultation, No Wheeze/Rhonchi/Rales Cardio Vascular: RRR, No murmur, gallop, rubs, NL S1 S2 GI: No tenderness/rebounding/guarding, No organomegaly, No hernia, Normal BS's, Nondistended, No mass/bruits, No McBurney tenderness : No CVA tenderness Other comments:: incontinent of urine Extremities: No tenderness or effusion, Full ROM, normal strength in all extremities, No edema, Normal digits & nails Neuro/Psych: Alert/oriented, DTR's symmetric, Normal sensory exam, Normal motor strength, Judgement/insight normal (poor judgement and insight), Mood normal, Normal gait, No focal deficits Misc: Normal back, No paraspinal tenderness ED Labs/Radiology/EKG Results - Lab Results Results: Abnormal Lab Results 07/13/19 07/13/19 07/13/19 04:45 04:45 04:45 WBC 7.0 RBC 3.80 Hgb 12.4 Hct 37.2 L MCV 97.8 MCH 32.5 H MCHC Differential 33.2 RDW 12.6 Plt Count 362 MPV 6.8 Neutrophils % 64.0 Lymphocytes % 28.4 Monocytes % 3.7 Eosinophils % 3.9 Basophils % 0.0 Sodium 137 Potassium 4.4 Chloride 103 Carbon Dioxide 26.1 Anion Gap 12.3 BUN 31 H Creatinine 1.7 H Est GFR ( Amer) TNP Est GFR (Non-Af Amer) TNP BUN/Creatinine Ratio 18.2 Glucose 97 Calcium 9.4 Total Bilirubin 0.3 AST 20 ALT 16 Alkaline Phosphatase 54 Troponin I 0.02 Total Protein 7.1 Albumin 3.6 L Globulin 3.5 Albumin/Globulin Ratio 1.0 - EKG Interpretations EKG Time:: 05:36 Rate & Rhythm: rate=74, sinus [place]: left axis ED Assessment - Assessment General Assessment: psychosis ED Septic Shock - . Is Septic Shock (SBP<90, OR Lactate>4 mmol\L) present?: No - <6hrs of presentation: Vital Signs: Vital Signs - 8 hr 07/13/19 03:36 Temp 97.2 F HR 80 RR 18 BP 121/71 O2 Sat % 97 ED Reassessment (Disposition) - Reassessment Reassessment Condition:: Unchanged - Diagnosis Diagnosis:: psychosis hearing decrease - Patient Disposition Discharge/Transfer:: Acute Care w/in this hosp Admitting Medical Physician:: Meghana Belle Admitting Psych Physician:: Katherny Mcwilliams Condition at Disposition:: Unchanged
[2019-07-13 04:52] LABS: % EOSINOPHILS 3.9 % (0.0-5.0); % LYMPHOCYTES 28.4 % (20.0-50.0); % MONOCYTES 3.7 % (2.0-10.0); EOSINOPHILE ABSOLUTE 0.3 Th/cmm (0.1-0.4); HEMATOCRIT 37.2 % (41.0-60); HEMOGLOBIN 12.4 gm/dL (12-16); MEAN CELL VOLUME 97.8 fl (80-99); MEAN CORPUSCULAR HEMOGLOBIN 32.5 pg (27.0-31.0); MEAN CORPUSCULAR HGB CONC 33.2 pg (28.0-36.0); MONOCYTE ABSOLUTE 0.3 Th/cmm (0.3-1.0); NEUTROPHILE ABSOLUTE 4.4 Th/cmm (1.8-8.0); PLATELET COUNT 362 Th/cmm (150-400); RED CELL DISTRIBUTION WIDTH 12.6 % (11.5-20.0)
[2019-07-13 05:37] LABS: ALBUMIN 3.6 gm/dL (4.2-5.5); ALKALINE PHOSPHATASE 54 U/L (34-104); ANION GAP 12.3 (7.0-16.0); BILIRUBIN,TOTAL 0.3 mg/dL (0.3-1.0); BUN - UREA NITROGEN 31 mg/dL (7-25); CALCIUM SERUM 9.4 mg/dL (8.6-10.3); CARBON DIOXIDE 26.1 mEq/L (21.0-31.0); CHLORIDE 103 mEq/L (98-107); CREATININE - SERUM 1.7 mg/dL (0.7-1.3); GLUCOSE 97 mg/dL (70-105); POTASSIUM SERUM 4.4 mEq/L (3.5-5.1); SGOT 20 U/L (13-39); SGPT/ALT 16 U/L (7-52); SODIUM SERUM 137 mEq/L (136-145); TOTAL PROTEIN,SERUM 7.1 gm/dL (6.0-8.3)
[2019-07-13 05:55] LABS: INR 0.93 (0.5-1.4)
[2019-07-13 07:38] VITALS: BP 121/71
[2019-07-13] MEDS ORDERED: Hydrocodone/APAP 10 mg/325 mg Tab PO PRN (08:16)
[2019-07-13] MEDS ORDERED: Maalox 30 mL Cup PO PRN (08:17)
[2019-07-13] MEDS ORDERED: Magnesium Hydroxide (MOM) 30 mL UDC PO PRN (08:17)
[2019-07-13] MEDS: Multivitamin Tab PO SCH (08:59)
[2019-07-13 09:37] LABS: CHOLESTEROL 177 mg/dL (<200); HDL -HIGH DENSITY LIPOPROTEIN 54 mg/dL (23-92); TRIGLYCERIDES 84 mg/dL (<150)
--- NOTE | 2019-07-13 15:48 | History and Physical ---
History of Present Illness - HPI Chief Complaint: 84 y/o male patient was brought into ER due to Agitation for evaluation and treatment. HPI: 84 y/o male patient was admitted to [facility] due to Agitation for evaluation and treatment. Patient has history of Hypertension, Thyroid disorder, Dementia and Cataract. Patient had an ER assessment and a complete workup was done. Patient will have a Psych evaluation. I will follow, treat and monitor patient. Patient will continue current treatment plan as ordered. Vital Signs: Last Vital Signs Temp 97.2 F 07/13/19 03:36 Pulse 80 07/13/19 03:36 Resp 20 07/13/19 13:49 BP 121/71 07/13/19 07:37 Pulse Ox 97 07/13/19 03:36 Past Medical History Cardiovascular: Report: HTN Pulmonary: Report: No Pertinent Hx RECORDS MANAGEMENT SPECIALIST: Report: Dementia GI: Report: No Pertinent Hx Psych: Report: Other (Dementia.) Musculoskeletal: Report: No Pertinent Hx Rheumatologic: Report: No pertinent Hx Infectious Disease: Report: No Pertinent Hx Renal/: Report: No Pertinent Hx Endocrine: Report: No Pertinent Hx Dermatology: Report: No Pertinent Hx - Past Surgical History Past Surgical History: No pertinent Hx Family Medical History - Family Member Mother History Unknown: Yes Social History Smoke: No Alcohol: None Drugs: None Lives: Prison Domestic Violence: Negative Health Maintenance Health Maintenance: Other (see chart.) - Medications Home Medications: Home Medication Medication Instructions Recorded Type Acetaminophen 2 tab PO Q4HR PRN 01/19/19 History Acetaminophen 2 tab PO Q4HR PRN 01/19/19 History Hydrocodone/Acetaminophen [[place] 1 tab PO Q6HR PRN 01/19/19 History 10-325 Tablet] Levothyroxine [Synthroid] 1 tab PO DAILY 01/19/19 History Timolol 0.5% Ophth Soln [Timoptic 1 drop EACH EYE BID 01/19/19 History 0.5% Ophth Soln] Other Medications: Please see medication reconciliation sheet. - Allergies Allergies/Adverse Reactions: Allergies Allergy/AdvReac Type Severity Reaction Status Date / Time Penicillins [PCN] Allergy Verified 01/19/19 19:20 Review of Systems - Review of Systems Review of Systems: Patient had been agitated. Constitutional: Report: No Significant Eyes: Report: Other (Cataract.) ENT: Report: No Significant Respiratory: Report: No Significant Cardiovascular: Report: No Significant Gastrointestinal: Report: No Significant Genitourinary: Report: No Significant Musculoskeletal: Report: No Significant Skin: Report: No Significant Neurological: Report: Other (Agitation.) Physical Exam - Physical Exam HEENT: Report: Ears Nose Throat within normal limits Neck: Report: Within normal limits Cardiovascular Systems: Report: +s1/s2 noted Respiratory: Report: Breath Sounds are within normal limits Abdomen: Report: Non-tender to palpation Back: Report: Inspection of back is within normal limits. Extremities: Report: Non-tender to palpation. Skin: Report: Color of skin is within normal limits Neuro/Psych: Report: Other (Agitated.) - Lab Results All Lab Results last 24 hours: Laboratory Results - last 24 hr 07/13/19 07/13/19 07/13/19 04:45 04:45 04:45 WBC 7.0 RBC 3.80 Hgb 12.4 Hct 37.2 L MCV 97.8 MCH 32.5 H MCHC Differential 33.2 RDW 12.6 Plt Count 362 MPV 6.8 Neutrophils % 64.0 Lymphocytes % 28.4 Monocytes % 3.7 Eosinophils % 3.9 Basophils % 0.0 PT 9.7 INR 0.93 Sodium 137 Potassium 4.4 Chloride 103 Carbon Dioxide 26.1 Anion Gap 12.3 BUN 31 H Creatinine 1.7 H Est GFR ( Amer) TNP Est GFR (Non-Af Amer) TNP BUN/Creatinine Ratio 18.2 Glucose 97 Calcium 9.4 Total Bilirubin 0.3 AST 20 ALT 16 Alkaline Phosphatase 54 Troponin I Total Protein 7.1 Albumin 3.6 L Globulin 3.5 Albumin/Globulin Ratio 1.0 Triglycerides Cholesterol LDL Cholesterol Direct HDL Cholesterol TSH 07/13/19 07/13/19 07/13/19 04:45 04:45 04:45 WBC RBC Hgb Hct MCV MCH MCHC Differential RDW Plt Count MPV Neutrophils % Lymphocytes % Monocytes % Eosinophils % Basophils % PT INR Sodium Potassium Chloride Carbon Dioxide Anion Gap BUN Creatinine Est GFR ( Amer) Est GFR (Non-Af Amer) BUN/Creatinine Ratio Glucose Calcium Total Bilirubin AST ALT Alkaline Phosphatase Troponin I 0.02 Total Protein Albumin Globulin Albumin/Globulin Ratio Triglycerides 84 Cholesterol 177 LDL Cholesterol Direct 108 HDL Cholesterol 54 TSH 24.60 H - Assessment Assessment: Agitation. Hypertension. Thyroid disorder. Dementia. Cataract. - Plan Plan: Continuation of care. Monitor Labs. Continue present meds as directed. Monitor vitals, Continue BP meds as directed. Psych evaluation. Monitor Diet/Nutritional support. Physical therapy prn. Occupational therapy prn. Fall precaution, frequent nursing rounds, and as needed restraints to prevent fall. Safety precaution. Supportive care. Continue collaborating with consulting specialists, case management and nursing team. Will Monitor patient and continue current treatment plan as ordered.
--- NOTE | 2019-07-14 00:03 | Psychiatric Evaluation ---
DATE OF SERVICE: 07/13/2019 HISTORY OF PRESENT ILLNESS: This is an 84-year-old male, extremely confused, coming in from a detention, combative with staff. The patient needing a Frances chair in the unit, restless, concerns for ongoing agitation, extremely confused on exam, essentially AO to name only, unable to really interview him. PAST PSYCHIATRIC HISTORY: Noted dementia. FAMILY HISTORY: Noncontributory. SOCIAL HISTORY: Nonsmoker, no alcohol, no drugs. Coming in from a detention. It is unclear if he has any family support. Pending collateral. MEDICATIONS: Noted. MENTAL STATUS EXAMINATION: Unkempt, fair eye contact, restless, mumbling, cannot really understand, very confused, disoriented, unclear psychotic symptoms. No overt SI or HI. PROVISIONAL DIAGNOSES: Dementia, dementia with behaviors; mood, unspecified; anxiety, unspecified. MEDICAL HISTORY: Please see full H and P. ESTIMATED LENGTH OF STAY: 5-8 days. ASSESSMENT: The patient requiring hospitalization, combative, agitated. PLAN: Treatment plan includes group as well as milieu therapy. CONDITIONS FOR DISCHARGE: Improved mood, improved affect, cessation of any agitation. We will adjust medication. JOB# [id number]
[2019-07-14] MEDS: Levothyroxine 0.1 Mg Tab PO SCH (06:42)
[2019-07-14 08:06] LABS: A1C 6.1 % (4.8-5.6)
[2019-07-14] MEDS: Multivitamin Tab PO SCH (10:48)
--- NOTE | 2019-07-14 15:23 | Internal Medicine Prog Note ---
Internal Medicine Subjective - Subjective Service Date: 07/14/19 Patient seen and examined:: with staff Patient is:: awake, verbal Per staff patient has:: tolerating meds Internal Medicine Objective - Results Result Diagrams: 07/13/19 04:45 07/13/19 04:45 Recent Labs: Laboratory Last Values WBC 7.0 Th/cmm (4.8-10.8) 07/13/19 04:45 RBC 3.80 Mil/cmm (3.80-5.80) 07/13/19 04:45 Hgb 12.4 gm/dL (12-16) 07/13/19 04:45 Hct 37.2 % (41.0-60) L 07/13/19 04:45 MCV 97.8 fl (80-99) 07/13/19 04:45 MCH 32.5 pg (27.0-31.0) H 07/13/19 04:45 MCHC Differential 33.2 pg (28.0-36.0) 07/13/19 04:45 RDW 12.6 % (11.5-20.0) 07/13/19 04:45 Plt Count 362 Th/cmm (150-400) 07/13/19 04:45 MPV 6.8 fl 07/13/19 04:45 Neutrophils % 64.0 % (40.0-80.0) 07/13/19 04:45 Lymphocytes % 28.4 % (20.0-50.0) 07/13/19 04:45 Monocytes % 3.7 % (2.0-10.0) 07/13/19 04:45 Eosinophils % 3.9 % (0.0-5.0) 07/13/19 04:45 Basophils % 0.0 % (0.0-2.0) 07/13/19 04:45 PT 9.7 SECONDS (9.5-11.5) 07/13/19 04:45 INR 0.93 (0.5-1.4) 07/13/19 04:45 Sodium 137 mEq/L (136-145) 07/13/19 04:45 Potassium 4.4 mEq/L (3.5-5.1) 07/13/19 04:45 Chloride 103 mEq/L (98-107) 07/13/19 04:45 Carbon Dioxide 26.1 mEq/L (21.0-31.0) 07/13/19 04:45 Anion Gap 12.3 (7.0-16.0) 07/13/19 04:45 BUN 31 mg/dL (7-25) H 07/13/19 04:45 Creatinine 1.7 mg/dL (0.7-1.3) H 07/13/19 04:45 Est GFR ( Amer) TNP 07/13/19 04:45 Est GFR (Non-Af Amer) TNP 07/13/19 04:45 BUN/Creatinine Ratio 18.2 07/13/19 04:45 Glucose 97 mg/dL (70-105) 07/13/19 04:45 Calcium 9.4 mg/dL (8.6-10.3) 07/13/19 04:45 Total Bilirubin 0.3 mg/dL (0.3-1.0) 07/13/19 04:45 AST 20 U/L (13-39) 07/13/19 04:45 ALT 16 U/L (7-52) 07/13/19 04:45 Alkaline Phosphatase 54 U/L (34-104) 07/13/19 04:45 Troponin I 0.02 ng/mL (0.01-0.05) 07/13/19 04:45 Total Protein 7.1 gm/dL (6.0-8.3) 07/13/19 04:45 Albumin 3.6 gm/dL (4.2-5.5) L 07/13/19 04:45 Globulin 3.5 gm/dL 07/13/19 04:45 Albumin/Globulin Ratio 1.0 (1.0-1.8) 07/13/19 04:45 Triglycerides 84 mg/dL (<150) 07/13/19 04:45 Cholesterol 177 mg/dL (<200) 07/13/19 04:45 LDL Cholesterol Direct 108 mg/dL (75-193) 07/13/19 04:45 HDL Cholesterol 54 mg/dL (23-92) 07/13/19 04:45 TSH 24.60 uIU/ml (0.34-5.60) H 07/13/19 04:45 - Physical Exam Vitals and I&O: Vital Signs Temp 98.6 F 07/14/19 14:00 Pulse 84 07/14/19 14:00 Resp 19 07/14/19 14:00 BP 121/64 07/14/19 14:00 Pulse Ox 98 07/14/19 14:00 Active Medications: Current Medications Acetaminophen (Tylenol) 650 mg PO Q4HR PRN PRN Reason: Mild Pain / Temp above 100 Stop: 09/11/19 08:16 Last Admin: 07/14/19 10:47 Dose: 650 mg Acetaminophen/Hydrocodone Bitart ([place] 10 Mg/325 Mg) 1 tab PO Q6HR PRN PRN Reason: Pain (Severe) Stop: 09/11/19 08:15 Al Hydrox/Mg Hydrox/Simethicone (Maalox) 30 ml PO Q4HR PRN PRN Reason: GI DISTRESS Stop: 09/11/19 08:16 Levothyroxine Sodium (Synthroid) 0.1 mg PO QDAC YANN Stop: 09/12/19 07:29 Last Admin: 07/14/19 06:42 Dose: Not Given Lorazepam (Ativan) 0.5 mg PO Q4HR PRN; Protocol PRN Reason: Anxiety Stop: 08/12/19 08:16 Magnesium Hydroxide (Milk Of Magnesia) 30 ml PO HS PRN PRN Reason: Constipation Multivitamins/Vitamin C (Theragran) 1 tab PO DAILY YANN Stop: 09/11/19 08:59 Last Admin: 07/14/19 10:48 Dose: 1 tab Risperidone (Risperdal) 0.5 mg PO BID YANN; Protocol Stop: 09/12/19 08:59 Last Admin: 07/14/19 10:48 Dose: 0.5 mg Timolol Maleate (Timoptic 0.5% Ophth Soln) 1 drop EACH EYE BID [facility] Stop: 09/11/19 08:59 Last Admin: 07/13/19 17:11 Dose: Not Given Zolpidem Tartrate (Ambien) 5 mg PO HS PRN PRN Reason: Insomnia Stop: 09/11/19 08:16 General: alert HEENT: NC/AT, PERRLA Neck: Supple Lungs: CTAB Cardiovascular: RRR, Normal S1, Normal S2, without murmur Abdomen: soft, non-tender, non-distended, positive bowel sound Extremities: excoriation Neurological: unable to follow command Internal Medicine Assmt/Plan - Assessment Assessment: Agitation. Hypertension. Thyroid disorder. Dementia. Cataract. - Plan Plan: Continuation of care. Monitor Labs. Continue present meds as directed. Monitor vitals, Continue BP meds as directed. Psych evaluation. Monitor Diet/Nutritional support. Physical therapy prn. Occupational therapy prn. Fall precaution, frequent nursing rounds, and as needed restraints to prevent fall. Safety precaution. Supportive care. Continue collaborating with consulting specialists, case management and nursing team. Will Monitor patient and continue current treatment plan as ordered.
[2019-07-15] MEDS: Levothyroxine 0.1 Mg Tab PO SCH (06:42)
[2019-07-15] MEDS: Multivitamin Tab PO SCH (08:26)
--- NOTE | 2019-07-15 14:03 | Internal Medicine Prog Note ---
Internal Medicine Subjective - Subjective Service Date: 07/15/19 Patient is:: awake, verbal Per staff patient has:: tolerating meds Internal Medicine Objective - Results Result Diagrams: 07/13/19 04:45 07/13/19 04:45 Recent Labs: Laboratory Last Values WBC 7.0 Th/cmm (4.8-10.8) 07/13/19 04:45 RBC 3.80 Mil/cmm (3.80-5.80) 07/13/19 04:45 Hgb 12.4 gm/dL (12-16) 07/13/19 04:45 Hct 37.2 % (41.0-60) L 07/13/19 04:45 MCV 97.8 fl (80-99) 07/13/19 04:45 MCH 32.5 pg (27.0-31.0) H 07/13/19 04:45 MCHC Differential 33.2 pg (28.0-36.0) 07/13/19 04:45 RDW 12.6 % (11.5-20.0) 07/13/19 04:45 Plt Count 362 Th/cmm (150-400) 07/13/19 04:45 MPV 6.8 fl 07/13/19 04:45 Neutrophils % 64.0 % (40.0-80.0) 07/13/19 04:45 Lymphocytes % 28.4 % (20.0-50.0) 07/13/19 04:45 Monocytes % 3.7 % (2.0-10.0) 07/13/19 04:45 Eosinophils % 3.9 % (0.0-5.0) 07/13/19 04:45 Basophils % 0.0 % (0.0-2.0) 07/13/19 04:45 PT 9.7 SECONDS (9.5-11.5) 07/13/19 04:45 INR 0.93 (0.5-1.4) 07/13/19 04:45 Sodium 137 mEq/L (136-145) 07/13/19 04:45 Potassium 4.4 mEq/L (3.5-5.1) 07/13/19 04:45 Chloride 103 mEq/L (98-107) 07/13/19 04:45 Carbon Dioxide 26.1 mEq/L (21.0-31.0) 07/13/19 04:45 Anion Gap 12.3 (7.0-16.0) 07/13/19 04:45 BUN 31 mg/dL (7-25) H 07/13/19 04:45 Creatinine 1.7 mg/dL (0.7-1.3) H 07/13/19 04:45 Est GFR ( Amer) TNP 07/13/19 04:45 Est GFR (Non-Af Amer) TNP 07/13/19 04:45 BUN/Creatinine Ratio 18.2 07/13/19 04:45 Glucose 97 mg/dL (70-105) 07/13/19 04:45 Calcium 9.4 mg/dL (8.6-10.3) 07/13/19 04:45 Total Bilirubin 0.3 mg/dL (0.3-1.0) 07/13/19 04:45 AST 20 U/L (13-39) 07/13/19 04:45 ALT 16 U/L (7-52) 07/13/19 04:45 Alkaline Phosphatase 54 U/L (34-104) 07/13/19 04:45 Troponin I 0.02 ng/mL (0.01-0.05) 07/13/19 04:45 Total Protein 7.1 gm/dL (6.0-8.3) 07/13/19 04:45 Albumin 3.6 gm/dL (4.2-5.5) L 07/13/19 04:45 Globulin 3.5 gm/dL 07/13/19 04:45 Albumin/Globulin Ratio 1.0 (1.0-1.8) 07/13/19 04:45 Triglycerides 84 mg/dL (<150) 07/13/19 04:45 Cholesterol 177 mg/dL (<200) 07/13/19 04:45 LDL Cholesterol Direct 108 mg/dL (75-193) 07/13/19 04:45 HDL Cholesterol 54 mg/dL (23-92) 07/13/19 04:45 TSH 24.60 uIU/ml (0.34-5.60) H 07/13/19 04:45 - Physical Exam Vitals and I&O: Vital Signs Temp 98.6 F 07/14/19 14:00 Pulse 84 07/14/19 14:00 Resp 20 07/15/19 08:00 BP 121/64 07/14/19 14:00 Pulse Ox 98 07/14/19 14:00 Active Medications: Current Medications Acetaminophen (Tylenol) 650 mg PO Q4HR PRN PRN Reason: Mild Pain / Temp above 100 Stop: 09/11/19 08:16 Last Admin: 07/14/19 10:47 Dose: 650 mg Acetaminophen/Hydrocodone Bitart ([place] 10 Mg/325 Mg) 1 tab PO Q6HR PRN PRN Reason: Pain (Severe) Stop: 09/11/19 08:15 Last Admin: 07/14/19 16:31 Dose: 1 tab Al Hydrox/Mg Hydrox/Simethicone (Maalox) 30 ml PO Q4HR PRN PRN Reason: GI DISTRESS Stop: 09/11/19 08:16 Levothyroxine Sodium (Synthroid) 0.1 mg PO QDAC YANN Stop: 09/12/19 07:29 Last Admin: 07/15/19 06:42 Dose: 0.1 mg Lorazepam (Ativan) 0.5 mg PO Q4HR PRN; Protocol PRN Reason: Anxiety Stop: 08/12/19 08:16 Magnesium Hydroxide (Milk Of Magnesia) 30 ml PO HS PRN PRN Reason: Constipation Multivitamins/Vitamin C (Theragran) 1 tab PO DAILY YANN Stop: 09/11/19 08:59 Last Admin: 07/15/19 08:26 Dose: 1 tab Risperidone (Risperdal) 0.5 mg PO BID YANN; Protocol Stop: 09/12/19 08:59 Last Admin: 07/15/19 08:26 Dose: 0.5 mg Timolol Maleate (Timoptic 0.5% Ophth Soln) 1 drop EACH EYE BID YANN Stop: 09/11/19 08:59 Last Admin: 07/15/19 08:26 Dose: 1 drop Zolpidem Tartrate (Ambien) 5 mg PO HS PRN PRN Reason: Insomnia Stop: 09/11/19 08:16 Last Admin: 07/14/19 21:12 Dose: 5 mg General: alert HEENT: NC/AT, PERRLA Neck: Supple Lungs: CTAB Cardiovascular: RRR, Normal S1, Normal S2, without murmur Abdomen: soft, non-tender, non-distended, positive bowel sound Extremities: excoriation Neurological: unable to follow command Internal Medicine Assmt/Plan - Assessment Assessment: Agitation. Hypertension. Thyroid disorder. Dementia. Cataract. - Plan Plan: Continuation of care. Monitor Labs. Continue present meds as directed. Monitor vitals, Continue BP meds as directed. Psych evaluation. Monitor Diet/Nutritional support. Physical therapy prn. Occupational therapy prn. Fall precaution, frequent nursing rounds, and as needed restraints to prevent fall. Safety precaution. Supportive care. Continue collaborating with consulting specialists, case management and nursing team. Will Monitor patient and continue current treatment plan as ordered.
--- NOTE | 2019-07-15 20:22 | Progress Notes ---
DATE: SUBJECTIVE: Chart was reviewed and the patient interviewed. Also discussed the patient's condition with the staff and reviewed records and labs. The patient remains confused and anxious. The patient also is still restless. He needs lots of redirections and needs close monitoring because of his forgetfulness. He has difficulty following directions. He also still needs lots of help with his ADLs and with his basic needs. Otherwise, the patient is compliant with taking her medications with no side effects of medications. ASSESSMENT: The patient is still confused and still needs lots of redirections. TREATMENT PLAN: Continue to monitor behavior and continue close observation of his condition. Also, continue adjusting psychotropic medications and follow up closely. [facility]# [id number]
--- NOTE | 2019-07-16 01:55 | Progress Notes ---
DATE: 07/15/2019 PSYCHIATRIC PROGRESS NOTE SUBJECTIVE: Chart was reviewed and the patient interviewed. Also discussed the patient's condition with the staff and reviewed records and labs. The patient is still confused and anxious. The patient also is still restless and still needs lots of redirections, with difficulty following directions. The patient also still actively hallucinating and actively responding and talking to himself. Otherwise, the patient is compliant with taking his medications with no side effects. ASSESSMENT: The patient is still psychotic and confused. TREATMENT PLAN: Continue to monitor behavior and condition closely and continue adjusting psychotropic medications. JOB# [id number]
[2019-07-16] MEDS: Levothyroxine 0.1 Mg Tab PO SCH (06:36)
[2019-07-16] MEDS: Multivitamin Tab PO SCH (08:35)
--- NOTE | 2019-07-16 14:31 | Internal Medicine Prog Note ---
Internal Medicine Subjective - Subjective Patient is:: awake, verbal, confused (anxious ), other Per staff patient has:: tolerating meds Internal Medicine Objective - Results Result Diagrams: 07/13/19 04:45 07/13/19 04:45 Recent Labs: Laboratory Last Values WBC 7.0 Th/cmm (4.8-10.8) 07/13/19 04:45 RBC 3.80 Mil/cmm (3.80-5.80) 07/13/19 04:45 Hgb 12.4 gm/dL (12-16) 07/13/19 04:45 Hct 37.2 % (41.0-60) L 07/13/19 04:45 MCV 97.8 fl (80-99) 07/13/19 04:45 MCH 32.5 pg (27.0-31.0) H 07/13/19 04:45 MCHC Differential 33.2 pg (28.0-36.0) 07/13/19 04:45 RDW 12.6 % (11.5-20.0) 07/13/19 04:45 Plt Count 362 Th/cmm (150-400) 07/13/19 04:45 MPV 6.8 fl 07/13/19 04:45 Neutrophils % 64.0 % (40.0-80.0) 07/13/19 04:45 Lymphocytes % 28.4 % (20.0-50.0) 07/13/19 04:45 Monocytes % 3.7 % (2.0-10.0) 07/13/19 04:45 Eosinophils % 3.9 % (0.0-5.0) 07/13/19 04:45 Basophils % 0.0 % (0.0-2.0) 07/13/19 04:45 PT 9.7 SECONDS (9.5-11.5) 07/13/19 04:45 INR 0.93 (0.5-1.4) 07/13/19 04:45 Sodium 137 mEq/L (136-145) 07/13/19 04:45 Potassium 4.4 mEq/L (3.5-5.1) 07/13/19 04:45 Chloride 103 mEq/L (98-107) 07/13/19 04:45 Carbon Dioxide 26.1 mEq/L (21.0-31.0) 07/13/19 04:45 Anion Gap 12.3 (7.0-16.0) 07/13/19 04:45 BUN 31 mg/dL (7-25) H 07/13/19 04:45 Creatinine 1.7 mg/dL (0.7-1.3) H 07/13/19 04:45 Est GFR ( Amer) TNP 07/13/19 04:45 Est GFR (Non-Af Amer) TNP 07/13/19 04:45 BUN/Creatinine Ratio 18.2 07/13/19 04:45 Glucose 97 mg/dL (70-105) 07/13/19 04:45 Calcium 9.4 mg/dL (8.6-10.3) 07/13/19 04:45 Total Bilirubin 0.3 mg/dL (0.3-1.0) 07/13/19 04:45 AST 20 U/L (13-39) 07/13/19 04:45 ALT 16 U/L (7-52) 07/13/19 04:45 Alkaline Phosphatase 54 U/L (34-104) 07/13/19 04:45 Troponin I 0.02 ng/mL (0.01-0.05) 07/13/19 04:45 Total Protein 7.1 gm/dL (6.0-8.3) 07/13/19 04:45 Albumin 3.6 gm/dL (4.2-5.5) L 07/13/19 04:45 Globulin 3.5 gm/dL 07/13/19 04:45 Albumin/Globulin Ratio 1.0 (1.0-1.8) 07/13/19 04:45 Triglycerides 84 mg/dL (<150) 07/13/19 04:45 Cholesterol 177 mg/dL (<200) 07/13/19 04:45 LDL Cholesterol Direct 108 mg/dL (75-193) 07/13/19 04:45 HDL Cholesterol 54 mg/dL (23-92) 07/13/19 04:45 TSH 24.60 uIU/ml (0.34-5.60) H 07/13/19 04:45 - Physical Exam Vitals and I&O: Vital Signs Temp 98.1 F 07/16/19 04:58 Pulse 81 08/16/19 08:35 Resp 19 07/16/19 04:58 BP 148/90 07/16/19 08:35 Pulse Ox 97 07/16/19 04:58 Intake & Output 07/15/19 07/16/19 07/16/19 18:59 06:59 18:59 Intake Total 1580 Balance 1580 Intake: Oral 1460 Other 120 Other: # Voids 2 # Bowel Movements 0 Active Medications: Current Medications Acetaminophen (Tylenol) 650 mg PO Q4HR PRN PRN Reason: Mild Pain / Temp above 100 Stop: 09/11/19 08:16 Last Admin: 07/14/19 10:47 Dose: 650 mg Acetaminophen/Hydrocodone Bitart ([place] 10 Mg/325 Mg) 1 tab PO Q6HR PRN PRN Reason: Pain (Severe) Stop: 09/11/19 08:15 Last Admin: 07/14/19 16:31 Dose: 1 tab Al Hydrox/Mg Hydrox/Simethicone (Maalox) 30 ml PO Q4HR PRN PRN Reason: GI DISTRESS Stop: 09/11/19 08:16 Levothyroxine Sodium (Synthroid) 0.1 mg PO QDAC [facility] Stop: 09/12/19 07:29 Last Admin: 07/16/19 06:36 Dose: 0.1 mg Lorazepam (Ativan) 0.5 mg PO Q4HR PRN; Protocol PRN Reason: Anxiety Stop: 08/12/19 08:16 Last Admin: 07/15/19 23:40 Dose: 0.5 mg Magnesium Hydroxide (Milk Of Magnesia) 30 ml PO HS PRN PRN Reason: Constipation Metoprolol Tartrate (Lopressor) 25 mg PO BID YANN Stop: 09/13/19 16:59 Last Admin: 07/16/19 08:35 Dose: 25 mg Multivitamins/Vitamin C (Theragran) 1 tab PO DAILY YANN Stop: 09/11/19 08:59 Last Admin: 07/16/19 08:35 Dose: 1 tab Risperidone (Risperdal) 0.5 mg PO BID YANN; Protocol Stop: 09/12/19 08:59 Last Admin: 07/16/19 08:34 Dose: 0.5 mg Timolol Maleate (Timoptic 0.5% Ophth Soln) 1 drop EACH EYE BID [facility] Stop: 09/11/19 08:59 Last Admin: 07/16/19 08:34 Dose: 1 drop Zolpidem Tartrate (Ambien) 5 mg PO HS PRN PRN Reason: Insomnia Stop: 09/11/19 08:16 Last Admin: 07/15/19 22:24 Dose: 5 mg General: alert HEENT: NC/AT, PERRLA Neck: Supple Lungs: CTAB Cardiovascular: RRR, Normal S1, Normal S2, without murmur Abdomen: soft, non-tender, non-distended, positive bowel sound Extremities: excoriation Neurological: unable to follow command Internal Medicine Assmt/Plan - Assessment Assessment: Agitation. Hypertension. Thyroid disorder. Dementia. Cataract. - Plan Plan: Continuation of care. Monitor Labs. Continue present meds as directed. Monitor vitals, Continue BP meds as directed. Psych evaluation. Monitor Diet/Nutritional support. Physical therapy prn. Occupational therapy prn. Fall precaution, frequent nursing rounds, and as needed restraints to prevent fall. Safety precaution. Supportive care. Continue collaborating with consulting specialists, case management and nursing team. Will Monitor patient and continue current treatment plan as ordered.
--- NOTE | 2019-07-16 15:53 | Progress Notes ---
DATE: SUBJECTIVE: Chart was reviewed and the patient interviewed. Also discussed the patient's condition with the staff and reviewed records and labs. The patient is still confused and is still restless and anxious. The patient also still needs redirections. The patient also still has episodes of agitation, but seems to be less than before. The patient also still has mood swings and is still easily irritable and easily agitated. TREATMENT PLAN: Continue to monitor behavior and condition closely. Also, the patient is on Risperdal 0.5 mg twice a day. We will continue same dose and continue to follow up closely and work on behavioral modification. [facility]# [id number]
[2019-07-17] MEDS: Levothyroxine 0.1 Mg Tab PO SCH (06:42)
[2019-07-17] MEDS: Multivitamin Tab PO SCH (09:09)
--- NOTE | 2019-07-17 11:00 | Internal Medicine Prog Note ---
Internal Medicine Subjective - Subjective Patient seen and examined:: chart reviewed Patient is:: awake, verbal, confused (anxious ), other (pt is confused anxious ) Per staff patient has:: no adverse event, tolerating meds Internal Medicine Objective - Results Result Diagrams: 07/13/19 04:45 07/13/19 04:45 Recent Labs: Laboratory Last Values WBC 7.0 Th/cmm (4.8-10.8) 07/13/19 04:45 RBC 3.80 Mil/cmm (3.80-5.80) 07/13/19 04:45 Hgb 12.4 gm/dL (12-16) 07/13/19 04:45 Hct 37.2 % (41.0-60) L 07/13/19 04:45 MCV 97.8 fl (80-99) 07/13/19 04:45 MCH 32.5 pg (27.0-31.0) H 07/13/19 04:45 MCHC Differential 33.2 pg (28.0-36.0) 07/13/19 04:45 RDW 12.6 % (11.5-20.0) 07/13/19 04:45 Plt Count 362 Th/cmm (150-400) 07/13/19 04:45 MPV 6.8 fl 07/13/19 04:45 Neutrophils % 64.0 % (40.0-80.0) 07/13/19 04:45 Lymphocytes % 28.4 % (20.0-50.0) 07/13/19 04:45 Monocytes % 3.7 % (2.0-10.0) 07/13/19 04:45 Eosinophils % 3.9 % (0.0-5.0) 07/13/19 04:45 Basophils % 0.0 % (0.0-2.0) 07/13/19 04:45 PT 9.7 SECONDS (9.5-11.5) 07/13/19 04:45 INR 0.93 (0.5-1.4) 07/13/19 04:45 Sodium 137 mEq/L (136-145) 07/13/19 04:45 Potassium 4.4 mEq/L (3.5-5.1) 07/13/19 04:45 Chloride 103 mEq/L (98-107) 07/13/19 04:45 Carbon Dioxide 26.1 mEq/L (21.0-31.0) 07/13/19 04:45 Anion Gap 12.3 (7.0-16.0) 07/13/19 04:45 BUN 31 mg/dL (7-25) H 07/13/19 04:45 Creatinine 1.7 mg/dL (0.7-1.3) H 07/13/19 04:45 Est GFR ( Amer) TNP 07/13/19 04:45 Est GFR (Non-Af Amer) TNP 07/13/19 04:45 BUN/Creatinine Ratio 18.2 07/13/19 04:45 Glucose 97 mg/dL (70-105) 07/13/19 04:45 Calcium 9.4 mg/dL (8.6-10.3) 07/13/19 04:45 Total Bilirubin 0.3 mg/dL (0.3-1.0) 07/13/19 04:45 AST 20 U/L (13-39) 07/13/19 04:45 ALT 16 U/L (7-52) 07/13/19 04:45 Alkaline Phosphatase 54 U/L (34-104) 07/13/19 04:45 Troponin I 0.02 ng/mL (0.01-0.05) 07/13/19 04:45 Total Protein 7.1 gm/dL (6.0-8.3) 07/13/19 04:45 Albumin 3.6 gm/dL (4.2-5.5) L 07/13/19 04:45 Globulin 3.5 gm/dL 07/13/19 04:45 Albumin/Globulin Ratio 1.0 (1.0-1.8) 07/13/19 04:45 Triglycerides 84 mg/dL (<150) 07/13/19 04:45 Cholesterol 177 mg/dL (<200) 07/13/19 04:45 LDL Cholesterol Direct 108 mg/dL (75-193) 07/13/19 04:45 HDL Cholesterol 54 mg/dL (23-92) 07/13/19 04:45 TSH 24.60 uIU/ml (0.34-5.60) H 07/13/19 04:45 - Physical Exam Vitals and I&O: Vital Signs Temp 98.2 F 07/17/19 04:57 Pulse 77 07/17/19 09:09 Resp 20 07/17/19 04:57 BP 150/84 07/17/19 09:09 Pulse Ox 95 07/17/19 04:57 Intake & Output 07/16/19 07/17/19 07/17/19 18:59 06:59 18:59 Intake Total 1300 480 Balance 1300 480 Intake: Oral 1300 480 Other: # Voids 3 2 # Bowel Movements 1 Active Medications: Current Medications Acetaminophen (Tylenol) 650 mg PO Q4HR PRN PRN Reason: Mild Pain / Temp above 100 Stop: 09/11/19 08:16 Last Admin: 07/14/19 10:47 Dose: 650 mg Acetaminophen/Hydrocodone Bitart ([place] 10 Mg/325 Mg) 1 tab PO Q6HR PRN PRN Reason: Pain (Severe) Stop: 09/11/19 08:15 Last Admin: 07/14/19 16:31 Dose: 1 tab Al Hydrox/Mg Hydrox/Simethicone (Maalox) 30 ml PO Q4HR PRN PRN Reason: GI DISTRESS Stop: 09/11/19 08:16 Levothyroxine Sodium (Synthroid) 0.1 mg PO QDAC YANN Stop: 09/12/19 07:29 Last Admin: 07/17/19 06:42 Dose: 0.1 mg Lorazepam (Ativan) 0.5 mg PO Q4HR PRN; Protocol PRN Reason: Anxiety Stop: 08/12/19 08:16 Last Admin: 07/17/19 09:11 Dose: 0.5 mg Magnesium Hydroxide (Milk Of Magnesia) 30 ml PO HS PRN PRN Reason: Constipation Metoprolol Tartrate (Lopressor) 25 mg PO BID YANN Stop: 09/13/19 16:59 Last Admin: 07/17/19 09:09 Dose: 25 mg Multivitamins/Vitamin C (Theragran) 1 tab PO DAILY YANN Stop: 09/11/19 08:59 Last Admin: 07/17/19 09:09 Dose: 1 tab Risperidone (Risperdal) 0.5 mg PO BID YANN; Protocol Stop: 09/12/19 08:59 Last Admin: 07/17/19 09:09 Dose: 0.5 mg Timolol Maleate (Timoptic 0.5% Ophth Soln) 1 drop EACH EYE BID YANN Stop: 09/11/19 08:59 Last Admin: 07/17/19 09:11 Dose: 1 drop Zolpidem Tartrate (Ambien) 5 mg PO HS PRN PRN Reason: Insomnia Stop: 09/11/19 08:16 Last Admin: 07/16/19 22:25 Dose: 5 mg General: alert, other (alert but confused) HEENT: NC/AT, PERRLA Neck: Supple Lungs: CTAB Cardiovascular: RRR, Normal S1, Normal S2, without murmur Abdomen: soft, non-tender, non-distended, positive bowel sound Extremities: excoriation Neurological: unable to follow command Internal Medicine Assmt/Plan - Assessment Assessment: Agitation. Hypertension. Thyroid disorder. Dementia. Cataract. - Plan Plan: Continuation of care. Monitor Labs. Continue present meds as directed. Monitor vitals, Continue BP meds as directed. Psych evaluation. Monitor Diet/Nutritional support. Physical therapy prn. Occupational therapy prn. Fall precaution, frequent nursing rounds, and as needed restraints to prevent fall. Safety precaution. Supportive care. Continue collaborating with consulting specialists, case management and nursing team. Will Monitor patient and continue current treatment plan as ordered.
--- NOTE | 2019-07-17 15:56 | Progress Notes ---
DATE: 07/17/2019 Case was discussed with staff of the patient, reviewed records. Covering for Dr. Mcwilliams. This is an 84-year-old male who was admitted on 07/13/2019, came from nursing home facility. He was combative with staff. He is restless, ongoing agitation, confused and oriented x 0 with a history of dementia. The patient continues to have episodes of agitation, irritability, restless, anxious, needing redirection, showing some progress. He is on Risperdal 0.5 mg twice a day with no side effects, no sedation, no nausea, no extrapyramidal symptoms. We will continue to work with the patient in group therapy, milieu therapy, and adjust the medication as needed. [facility]# [id number]
[2019-07-18] MEDS: Levothyroxine 0.1 Mg Tab PO SCH (07:07)
[2019-07-18] MEDS: Multivitamin Tab PO SCH (09:05)
--- NOTE | 2019-07-18 09:48 | Internal Medicine Prog Note ---
Internal Medicine Subjective - Subjective Patient is:: awake, verbal, confused (anxious ), other (pt is confused anxious , irritable, sleep deprived) Per staff patient has:: no adverse event, tolerating meds Internal Medicine Objective - Results Result Diagrams: 07/13/19 04:45 07/13/19 04:45 Recent Labs: Laboratory Last Values WBC 7.0 Th/cmm (4.8-10.8) 07/13/19 04:45 RBC 3.80 Mil/cmm (3.80-5.80) 07/13/19 04:45 Hgb 12.4 gm/dL (12-16) 07/13/19 04:45 Hct 37.2 % (41.0-60) L 07/13/19 04:45 MCV 97.8 fl (80-99) 07/13/19 04:45 MCH 32.5 pg (27.0-31.0) H 07/13/19 04:45 MCHC Differential 33.2 pg (28.0-36.0) 07/13/19 04:45 RDW 12.6 % (11.5-20.0) 07/13/19 04:45 Plt Count 362 Th/cmm (150-400) 07/13/19 04:45 MPV 6.8 fl 07/13/19 04:45 Neutrophils % 64.0 % (40.0-80.0) 07/13/19 04:45 Lymphocytes % 28.4 % (20.0-50.0) 07/13/19 04:45 Monocytes % 3.7 % (2.0-10.0) 07/13/19 04:45 Eosinophils % 3.9 % (0.0-5.0) 07/13/19 04:45 Basophils % 0.0 % (0.0-2.0) 07/13/19 04:45 PT 9.7 SECONDS (9.5-11.5) 07/13/19 04:45 INR 0.93 (0.5-1.4) 07/13/19 04:45 Sodium 137 mEq/L (136-145) 07/13/19 04:45 Potassium 4.4 mEq/L (3.5-5.1) 07/13/19 04:45 Chloride 103 mEq/L (98-107) 07/13/19 04:45 Carbon Dioxide 26.1 mEq/L (21.0-31.0) 07/13/19 04:45 Anion Gap 12.3 (7.0-16.0) 07/13/19 04:45 BUN 31 mg/dL (7-25) H 07/13/19 04:45 Creatinine 1.7 mg/dL (0.7-1.3) H 07/13/19 04:45 Est GFR ( Amer) TNP 07/13/19 04:45 Est GFR (Non-Af Amer) TNP 07/13/19 04:45 BUN/Creatinine Ratio 18.2 07/13/19 04:45 Glucose 97 mg/dL (70-105) 07/13/19 04:45 Calcium 9.4 mg/dL (8.6-10.3) 07/13/19 04:45 Total Bilirubin 0.3 mg/dL (0.3-1.0) 07/13/19 04:45 AST 20 U/L (13-39) 07/13/19 04:45 ALT 16 U/L (7-52) 07/13/19 04:45 Alkaline Phosphatase 54 U/L (34-104) 07/13/19 04:45 Troponin I 0.02 ng/mL (0.01-0.05) 07/13/19 04:45 Total Protein 7.1 gm/dL (6.0-8.3) 07/13/19 04:45 Albumin 3.6 gm/dL (4.2-5.5) L 07/13/19 04:45 Globulin 3.5 gm/dL 07/13/19 04:45 Albumin/Globulin Ratio 1.0 (1.0-1.8) 07/13/19 04:45 Triglycerides 84 mg/dL (<150) 07/13/19 04:45 Cholesterol 177 mg/dL (<200) 07/13/19 04:45 LDL Cholesterol Direct 108 mg/dL (75-193) 07/13/19 04:45 HDL Cholesterol 54 mg/dL (23-92) 07/13/19 04:45 TSH 24.60 uIU/ml (0.34-5.60) H 07/13/19 04:45 - Physical Exam Vitals and I&O: Vital Signs Temp 98.0 F 07/17/19 14:00 Pulse 78 07/18/19 09:06 Resp 20 07/17/19 20:00 BP 136/91 07/18/19 09:06 Pulse Ox 97 07/17/19 14:00 Intake & Output 07/17/19 07/18/19 07/18/19 18:59 06:59 18:59 Intake Total 1200 Balance 1200 Intake: Oral 1200 Other: # Voids 3 # Bowel Movements 0 Active Medications: Current Medications Acetaminophen (Tylenol) 650 mg PO Q4HR PRN PRN Reason: Mild Pain / Temp above 100 Stop: 09/11/19 08:16 Last Admin: 07/14/19 10:47 Dose: 650 mg Acetaminophen/Hydrocodone Bitart ([place] 10 Mg/325 Mg) 1 tab PO Q6HR PRN PRN Reason: Pain (Severe) Stop: 09/11/19 08:15 Last Admin: 07/14/19 16:31 Dose: 1 tab Al Hydrox/Mg Hydrox/Simethicone (Maalox) 30 ml PO Q4HR PRN PRN Reason: GI DISTRESS Stop: 09/11/19 08:16 Levothyroxine Sodium (Synthroid) 0.1 mg PO QDAC [facility] Stop: 09/12/19 07:29 Last Admin: 07/18/19 07:07 Dose: 0.1 mg Lorazepam (Ativan) 0.5 mg PO Q4HR PRN; Protocol PRN Reason: Anxiety Stop: 08/12/19 08:16 Last Admin: 07/17/19 23:48 Dose: 0.5 mg Magnesium Hydroxide (Milk Of Magnesia) 30 ml PO HS PRN PRN Reason: Constipation Metoprolol Tartrate (Lopressor) 25 mg PO BID [facility] Stop: 09/13/19 16:59 Last Admin: 07/18/19 09:06 Dose: 25 mg Multivitamins/Vitamin C (Theragran) 1 tab PO DAILY [facility] Stop: 09/11/19 08:59 Last Admin: 07/18/19 09:05 Dose: 1 tab Risperidone (Risperdal) 0.5 mg PO BID YANN; Protocol Stop: 09/12/19 08:59 Last Admin: 07/18/19 09:06 Dose: 0.5 mg Timolol Maleate (Timoptic 0.5% Ophth Soln) 1 drop EACH EYE BID [facility] Stop: 09/11/19 08:59 Last Admin: 07/18/19 09:06 Dose: 1 drop Zolpidem Tartrate (Ambien) 5 mg PO HS PRN PRN Reason: Insomnia Stop: 09/11/19 08:16 Last Admin: 07/17/19 23:49 Dose: 5 mg General: alert, NAD, other (alert but confused) HEENT: NC/AT, PERRLA Neck: Supple, No JVD Lungs: CTAB Cardiovascular: RRR, Normal S1, Normal S2 Abdomen: soft, non-tender, non-distended Extremities: excoriation Neurological: unable to follow command Internal Medicine Assmt/Plan - Assessment Assessment: Agitation HTN Thyroid Disorder Dementia Cataract - Plan Plan: Continue current treatment plan. Monitor Labs.Continue current medications Continue to monitor VS Monitor Diet/Nutritional support. Psych management per Psychiatry. Pain Management. PT/OT prn Safety precaution, Fall precaution, frequent nursing round. Supportive care. Continue collaborating with consulting specialists, case management and nursing team.
--- NOTE | 2019-07-18 16:01 | Progress Notes ---
DATE: 07/18/2019 Case was discussed with staff of the patient, reviewed records. The patient continues to be confused taking a while to be able to tell me his name, could not tell me the date. Continues to be restless, anxious, continues to need redirection with episodes of agitation, irritability, mood swings. He is sleeping better, eating better, compliant with the medication with no side effects, no sedation, no nausea, no extrapyramidal symptoms, Risperdal 0.5 mg twice a day and we will continue to work with the patient group in therapy, milieu therapy, and adjust the medication as needed. JOB# [id number]
[2019-07-19] MEDS: Levothyroxine 0.1 Mg Tab PO SCH (06:49)
[2019-07-19] MEDS: Multivitamin Tab PO SCH (08:20)
--- NOTE | 2019-07-19 12:53 | Internal Medicine Prog Note ---
Internal Medicine Subjective - Subjective Service Date: 07/19/19 Patient seen and examined:: with staff Patient is:: awake, verbal, agitated, confused (anxious ), other (pt is confused anxious , irritable, sleep deprived) Patient Complaints of:: other (very confused, agitated and anxious.) Per staff patient has:: no adverse event, no episodes of fall, tolerating meds Internal Medicine Objective - Results Result Diagrams: 07/13/19 04:45 07/13/19 04:45 Recent Labs: Laboratory Last Values WBC 7.0 Th/cmm (4.8-10.8) 07/13/19 04:45 RBC 3.80 Mil/cmm (3.80-5.80) 07/13/19 04:45 Hgb 12.4 gm/dL (12-16) 07/13/19 04:45 Hct 37.2 % (41.0-60) L 07/13/19 04:45 MCV 97.8 fl (80-99) 07/13/19 04:45 MCH 32.5 pg (27.0-31.0) H 07/13/19 04:45 MCHC Differential 33.2 pg (28.0-36.0) 07/13/19 04:45 RDW 12.6 % (11.5-20.0) 07/13/19 04:45 Plt Count 362 Th/cmm (150-400) 07/13/19 04:45 MPV 6.8 fl 07/13/19 04:45 Neutrophils % 64.0 % (40.0-80.0) 07/13/19 04:45 Lymphocytes % 28.4 % (20.0-50.0) 07/13/19 04:45 Monocytes % 3.7 % (2.0-10.0) 07/13/19 04:45 Eosinophils % 3.9 % (0.0-5.0) 07/13/19 04:45 Basophils % 0.0 % (0.0-2.0) 07/13/19 04:45 PT 9.7 SECONDS (9.5-11.5) 07/13/19 04:45 INR 0.93 (0.5-1.4) 07/13/19 04:45 Sodium 137 mEq/L (136-145) 07/13/19 04:45 Potassium 4.4 mEq/L (3.5-5.1) 07/13/19 04:45 Chloride 103 mEq/L (98-107) 07/13/19 04:45 Carbon Dioxide 26.1 mEq/L (21.0-31.0) 07/13/19 04:45 Anion Gap 12.3 (7.0-16.0) 07/13/19 04:45 BUN 31 mg/dL (7-25) H 07/13/19 04:45 Creatinine 1.7 mg/dL (0.7-1.3) H 07/13/19 04:45 Est GFR ( Amer) TNP 07/13/19 04:45 Est GFR (Non-Af Amer) TNP 07/13/19 04:45 BUN/Creatinine Ratio 18.2 07/13/19 04:45 Glucose 97 mg/dL (70-105) 07/13/19 04:45 Calcium 9.4 mg/dL (8.6-10.3) 07/13/19 04:45 Total Bilirubin 0.3 mg/dL (0.3-1.0) 07/13/19 04:45 AST 20 U/L (13-39) 07/13/19 04:45 ALT 16 U/L (7-52) 07/13/19 04:45 Alkaline Phosphatase 54 U/L (34-104) 07/13/19 04:45 Troponin I 0.02 ng/mL (0.01-0.05) 07/13/19 04:45 Total Protein 7.1 gm/dL (6.0-8.3) 07/13/19 04:45 Albumin 3.6 gm/dL (4.2-5.5) L 07/13/19 04:45 Globulin 3.5 gm/dL 07/13/19 04:45 Albumin/Globulin Ratio 1.0 (1.0-1.8) 07/13/19 04:45 Triglycerides 84 mg/dL (<150) 07/13/19 04:45 Cholesterol 177 mg/dL (<200) 07/13/19 04:45 LDL Cholesterol Direct 108 mg/dL (75-193) 07/13/19 04:45 HDL Cholesterol 54 mg/dL (23-92) 07/13/19 04:45 TSH 24.60 uIU/ml (0.34-5.60) H 07/13/19 04:45 - Physical Exam Vitals and I&O: Vital Signs Temp 98.1 F 07/19/19 06:17 Pulse 84 07/19/19 06:17 Resp 20 07/19/19 06:17 BP 150/82 07/19/19 06:17 Pulse Ox 97 07/19/19 06:17 Intake & Output 07/18/19 07/19/19 07/19/19 18:59 06:59 18:59 Intake Total 240 Balance 240 Intake: Oral 240 Other: # Voids 2 Active Medications: Current Medications Acetaminophen (Tylenol) 650 mg PO Q4HR PRN PRN Reason: Mild Pain / Temp above 100 Stop: 09/11/19 08:16 Last Admin: 07/14/19 10:47 Dose: 650 mg Acetaminophen/Hydrocodone Bitart (Piqua 10 Mg/325 Mg) 1 tab PO Q6HR PRN PRN Reason: Pain (Severe) Stop: 09/11/19 08:15 Last Admin: 07/14/19 16:31 Dose: 1 tab Al Hydrox/Mg Hydrox/Simethicone (Maalox) 30 ml PO Q4HR PRN PRN Reason: GI DISTRESS Stop: 09/11/19 08:16 Levothyroxine Sodium (Synthroid) 0.1 mg PO QDAC YANN Stop: 09/12/19 07:29 Last Admin: 07/19/19 06:49 Dose: 0.1 mg Lorazepam (Ativan) 0.5 mg PO Q4HR PRN; Protocol PRN Reason: Anxiety Stop: 08/12/19 08:16 Last Admin: 07/17/19 23:48 Dose: 0.5 mg Magnesium Hydroxide (Milk Of Magnesia) 30 ml PO HS PRN PRN Reason: Constipation Metoprolol Tartrate (Lopressor) 25 mg PO BID YANN Stop: 09/13/19 16:59 Last Admin: 07/19/19 08:21 Dose: Not Given Multivitamins/Vitamin C (Theragran) 1 tab PO DAILY YANN Stop: 09/11/19 08:59 Last Admin: 07/19/19 08:20 Dose: 1 tab Risperidone (Risperdal) 0.5 mg PO BID YANN; Protocol Stop: 09/12/19 08:59 Last Admin: 07/19/19 08:21 Dose: 0.5 mg Timolol Maleate (Timoptic 0.5% Ophth Soln) 1 drop EACH EYE BID YANN Stop: 09/11/19 08:59 Last Admin: 07/19/19 08:20 Dose: 1 drop Zolpidem Tartrate (Ambien) 5 mg PO HS PRN PRN Reason: Insomnia Stop: 09/11/19 08:16 Last Admin: 07/17/19 23:49 Dose: 5 mg Physical Exam: Patient continues to be restless, anxious with episodes of agitation, mood swings. General: alert, NAD, other (alert but confused) HEENT: NC/AT, PERRLA Neck: Supple, No JVD Lungs: CTAB Cardiovascular: RRR, Normal S1, Normal S2 Abdomen: soft, non-tender, non-distended Extremities: excoriation Neurological: unable to follow command Internal Medicine Assmt/Plan - Assessment Assessment: Agitation. Hypertension. Thyroid disorder. Dementia. Cataract. - Plan Plan: Continuation of care. Monitor Labs. Continue present meds as directed. Monitor vitals, Continue BP meds as directed. Psych evaluation. Monitor Diet/Nutritional support. Physical therapy prn. Occupational therapy prn. Fall precaution, frequent nursing rounds, and as needed restraints to prevent fall. Safety precaution. Supportive care. Continue collaborating with consulting specialists, case management and nursing team. Will Monitor patient and continue present care management. Nutritional Asmnt/Malnutr-PDOC - Dietary Evaluation Malnutrition Findings (Please click <Entered> for more info): Nutritional Asmnt/Malnutrition Start: 07/19/19 12: 12 Text: Status: Complete Freq: Protocol: Document 07/19/19 12:12 MATY (Rec: 07/19/19 12:17 MATY [email or web address]) Nutritional Asmnt/Malnutrition Patient General Information Nutritional Screening Low Risk Diagnosis Psychosis Pertinent Medical Hx/Surgical Hx HTN, Thyroid disorder, dementia and cataract Subjective Information Pt is a 84-year-old male from [facility] admitted on 07/13 c/o agitation. Per Meal/ Nutrition Activity Record, Pt PO intake 75% meals x 3 days. HT: 61 WT: 175 LB (79.55 kg) BMI: 23.09 (Normal) GI: Soft, Non-Tender BM: 07/17 x1 I/O: 240/Not Noted Skin: Redness Dae: 18 Diet Order: Mechanical Soft, ANNELIESE Estimated Energy Needs: ( Geriatric, CBW) 3393-4447 kcals (25-30 kcals/ kg) 80-95g Pro (1.0-1.2 g/kg) 5624-9804 ml (25-30 ml/kg) Pt PO intake 75% meals x 3 days Per Meal/Nutrition Activity Record. Dietary is currently providing an estimated 2192 kcals and 106 gm Pro, per Pt PO intake this is providing an estimated 1644 kcals and 80 gm Pro to meet 82% kcal and 100+% Pro needs- Adequate. Current Diet Order/ Nutrition Support Mechanical Soft, ANNELIESE Pertinent Medications Maalox (PRN), Synthroid, MOM ( PRN), Lopressor, Theragran Pertinent Labs 07/13: Hgb/Hct 12.4-37.2, BUN/ Cr 31/1.7, Alb 3.6 Nutritional Hx/Data Height 1.85 m Height (Calculated Centimeters) 185.4 Current Weight (lbs) 79.379 kg Weight (Calculated Kilograms) 79.4 Weight (Calculated Grams) 93157.7 [place] Body Weight 80 kg % [place] Body Weight 99 Body Mass Index (BMI) 23.1 Weight Status Approriate GI Symptoms GI Symptoms None Last BM 07/17 x1 Skin Integrity/Comment: Redness Dae: 18 Current %PO Good (75-100%) Estimated Nutritional Goals BEE in Kcals: Using Current wt Calories/Kcals/Kg 25-30 Kcals Calculated 2079-9006 Protein: Using Current wt Protein g/k.0-1.2 Protein Calculated 80-95 Fluid: ml 4000-9135 ml (25-30 ml/kg) Nutritional Problem No current Nutrition Prob Problem N/A Etiology N/A Signs/Symptoms: N/A Malnutrition Related to Morbid Obesity Malnutrition related to morbid obesity No Intervention/Recommendation Comments 1.Continue with Mechanical Soft, ANNELIESE diet as ordered. Expected Outcomes/Goals Expected Outcomes/Goals 1.PO intake to continue to meet 75% of nutritional needs. 2.Monitor PO intake, wt, nutrition related labs, and skin integrity. 3.F/U as low risk in 7 days,
--- NOTE | 2019-07-20 00:22 | Progress Notes ---
DATE: SUBJECTIVE: Chart reviewed and the patient interviewed. Also discussed the patient's condition with the staff and reviewed records and labs. The patient is calmer and he is less irritable and less agitated. The patient also is interacting more with peers and with others. The patient also is compliant with taking his medications. He tends to isolate himself but also had episodes of restlessness. The patient on the other hand is compliant with taking his medications and no side effects of Risperdal 0.5 mg twice a day. ASSESSMENT: The patient is still restless and irritable mood, but is slightly more cooperative with his medications and his treatment. TREATMENT PLAN: Continue monitoring his behavior and his condition closely. Also, continue to work on discharge plans and also check with [facility] for possibility of returning the patient there tomorrow if he continues to improve. [facility]# [id number]
[2019-07-20] MEDS: Levothyroxine 0.1 Mg Tab PO SCH (06:52)
--- NOTE | 2019-07-20 07:08 | Discharge Summary ---
DATE OF DISCHARGE: 07/20/2019 DISCHARGE SUMMARY PATIENT'S AGE: 84. SEX: Male. PHYSICIAN: Dr. Mcwilliams. FINAL DIAGNOSIS: PRIMARY DIAGNOSES: Unspecified psychosis. SECONDARY DIAGNOSIS: Dementia, moderate to severe, with behavior disturbances and psychosis. HOSPITAL COURSE: The patient continued to be agitated and in irritable mood. The patient also was anxious. The patient also was suspicious and paranoid. The patient was started on Risperdal and the dose adjusted to 2.5 mg twice a day. Gradually, the patient's affect was brighter. The patient was less irritable and less agitated. The patient was discharged from the hospital back to [facility]. Physical exam of the patient showed no acute medical problems. AFTER DISCHARGE PLANS: The patient discharged from the hospital back to [facility] with plans to follow him up there. EXPECTED OUTCOME AFTER DISCHARGE: Fair, if the patient continued to take his psychotropic medications and follow up with discharge plans. [facility]# [id number]
[2019-07-20] MEDS: Multivitamin Tab PO SCH (09:06)
== END 2019-07-20 16:00 | DRG 885 ==
LOC: ER 03:23 → GERO2 06:21
PROVIDERS: ADMIT Psychiatry & Neurology Psychiatry; ATTEND Psychiatry & Neurology Psychiatry
DX: F29 Unspecified psychosis not due to a substance or known physiological condition (principal); F03.91 Unspecified dementia, unspecified severity, with behavioral disturbance; I10 Essential (primary) hypertension; H26.9 Unspecified cataract; F39 Unspecified mood [affective] disorder; F41.9 Anxiety disorder, unspecified; Z88.0 Allergy status to penicillin
CPT/HCPCS: 36415-UA; 80053-TC; 80061-TC; 83036-90; 84443-TC; 84484-TC; 85025-TC; 85610-TC; 93005; J2060; Z7610